=== PATIENT | male | born 1990 | race Caucasian/White ===

== ENCOUNTER 2022-12-08 09:47 | Outpatient (RCR) | payer OTHER, SELFPAY ==
--- NOTE | 2022-12-08 10:10 | BH.SGPN.GN ---
Behaviors/Verbalizations/Mental Status: []Pt alert and oriented, casually dressed and groomed. Eye contact good. Motor activity appropriate. Speech within normal limits. Affect congruent, mood anxious and depressed. Thoughts linear, logical, no signs of hallucinations or delusions. Client Response/Progress/Benefit: []Pt first day of IOP tx and did well to be a semi-active participant AEB taking notes and contributing in group discussions and activities. Pt engaged during interactive discussion in which the group defined self-care and discussed its benefits. Group identified improved motivation, decreased depression, reduced stress, and better relationships.?Pt worked with peers in a small group to identify myths related to self-care and worked within group to bust these self-care myths. Pt identified personal barrier of negative self-talk which keeps pt from practicing consistent self-care. Benefited from increased awareness of self-care, its benefits, and the consequences of not utilizing self-care strategies. Will continue IOP tx to prevent decompensation, improve ability to identify and actively apply healthy coping skills, and reduce anxiety. Narrative Note: []
--- NOTE | 2022-12-08 13:42 | BH.COMM ---
Communication Note - Communication with Client Communication Note: Met with pt today to complete initial paperwork. No significant changes since pre-admission screening. Completed [place] [facility]icide Screening. Denies active SI. Does report passive thoughts of carbon-monoxide poisoning. Denies active plan or intent. Pt does have a hx of one interrupted attempt via train tracks and one prior attempt via firearm. Reports he would no longer consider those methods. Does reports owning a firearm though shared he has this in a gun safe with the ammunition stored seperately. Educated on Lethal means counseling and harms reduction. Encouraged to give his firearm to a support. Reports his son as a major protective factor. Future oriented and willing to seek crisis services if feeling unable to maintain safety at any time. Consulted with Dr. Cloud with plan to admit to IOP with dx of F33.2
--- NOTE | 2022-12-09 09:05 | BH.SGPN.GN ---
Behaviors/Verbalizations/Mental Status: []Eye contact fair to good. Motor activity appropriate. Speech within normal limits. Affect congruent, mood anxious and depressed. Thoughts linear, logical, no signs of hallucinations or delusions. Reviewed client?s symptom tracker, no reported suicidal ideation, denies plan, or intent as of 12/09/2022. Client Response/Progress/Benefit: [] Client receptive of session, attentive and willing to process with group. Identified current mental health wins as beginning the IOP program, as well as meeting with the psychiatrist this morning. Shared he was prescribed a medication to help with managing his nightmares and hopefully improve overall quality of sleep. Shared feeling hopeful about this. Current stressor indicated as taking leave from work to do the IOP program and feeling unsure of the security of his job as a result. Reports knowing that addressing his mental health needs is the primary concern as he would ultimately end up losing his position if he did not. Client appeared to benefit from group support and encouragement. Recommended continued IOP tx to continue to improve distress tolerance and thought challenging, as well as promote mood stability. Narrative Note: []
--- NOTE | 2022-12-09 10:15 | BH.SGPN.GN ---
Behaviors/Verbalizations/Mental Status: [] Client alert and oriented, casually dressed and groomed. Eye contact good. Motor activity appropriate. Speech within normal limits. Affect congruent, mood dysthymic. Thoughts linear, logical, no signs of hallucinations or delusions. Client Response/Progress/Benefit: [] Client responded session by being attentive and taking notes. Client did not share input or reflect with group. Group identified the benefits of change which included: personal growth, positive perspective, increased confidence and increased autonomy. Worked with the group to identify barriers to change, which included: uncomfortable emotions such as anxiety, lack of awareness, low motivation, negative support system, and negative thinking. Client attentive in activity where they identified and discussed the emotions related to change. Appear to benefit from increased awareness and understanding of emotions, benefits, and barriers related to change. Will continue IOP tx to improve daily functioning, improve emotion regulation, and prevent decompensation.
--- NOTE | 2022-12-09 10:25 | BH.NA_ITS ---
Physical Data Vital Signs Pulse Rate: 87 Blood Pressure: 169/100 (Client states my blood pressure is always high when I get it taken in an office) Height/Weight Height: 1.88 m Weight:: 108.862 kg Weight in Pounds: 240.0 lbs Current Medication Compliance Medication Compliance Do you take your medication as prescribed?: Yes Nutritional History Appetite Nutritional Instructions: Describe your appetite:: Fair Additional nutritional information:: Client states after a recent break-up, he lost about 20 lbs but has gained about 10-15lbs of that back. 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 Functional Assessment Sleep Pattern Describe any problems with sleeping: Client states he sleeps about 5-7 hours per night. Activities Motor Activity:: Functional Sensory/Communication Assess Vision Problems Do you have any vision problems?: Glasses Medical Problems/History Cardiac Conditions Cardiovascular: Other (See comments) (client has a history of right sided heart failure related to his PE's and possibly had a minor NSTEMI at that time) Respiratory Conditions Respiratory: Asthma Neurological Conditions Neurological: Other (See comments) (history of concussions with sports when he was younger) Hematologic Conditions Hematologic: Hx of blood clot and Other (See comments) (history of DVT and PE's- currently on Eliquis which is planned life-long since he has had PE's more than once, protein C deficiency) Pain Assessment Do you have acute or chronic pain?: No Surgical History Surgical History Have you had any surgeries? If so, list type and date:: Yes (wisdom teeth, thrombolysis) Substance Abuse Substance Abuse Please describe substance abuse in the last 30 days:: Client reports to alcohol use monthly or less. Client denies tobacco or substance use. Client drinks 2 cans of pepsi per day for caffeine. Mental Status Summary Mental Status Significant Findings/Observations on Appearance and Mood:: Client is alert and oriented x4. Client is casually groomed with good hygiene. Client is cooperative with assessment. Client makes good eye contact. Client's voice has normal rate and volume. Client has appropriate affect. Client makes logical associations. Client has normal processing. Client denies delusions/hallucinations. Client reports some fleeting SI, denies intent/plan at this time. Suicide Assessment Suicidal Ideation Are you currently or have you been suicidal in the past?: Yes Suicidal Intentional Rating Scale (SIRS): Suicidal thoughts (past) (fleeting SI at times, denies current plan/intent) Physician Notification Past Psychiatric History MH Treatment Hx Past Psychiatric Medications:: Zoloft Age of first mental health symptoms: Client states he has had symptoms of depression since around age 9 and was first on medication for mental health in high school. Current providers for mental health treatment (counselor, psychiatrist, case work aide, etc.): Client recently started seeing Dr. Rouse (psychologist) and has an appointment 12/14 with Poly Price NP at [facility]. Fall Risk Assessment Age Age: Less than 60 Mental Status Mental Status: Willing & able to ask for assistance when needed Physical Status Physical Status: No problems Impairments Impairments: None Elimination Elimination: Continent AND independent Gait or Balance Gait or Balance: Walks independently Hx of Falls History of falls in the past 6 months: No known history Medications/Substances Psychotropics:: Antidepressants Medications/substances used within the past 24 hours or ordered to administer: 1-2 of the medications/substances listed above Total Score Total Points:: 1 RN Summary of Impressions Impressions Recommendations Impressions: Psychiatric Issues: 1. Major depressive disorder, recurrent, severe without psychosis 2. Generalized anxiety disorder 3. PTSD Impression: Medical Issues: Client states at times the savings card for his Eliquis doesn't provide a discount and he has to wait to fill this medication until a pharmacist can assist him in sorting it out. Client states he does not want to be on Warfarin vs the Eliquis due to frequent INR's needed. Discussed with client the importance of compliance with his anticoagulation medication due to his PE's. Level of Care How do the client's current symptoms and functional deficits support need for this level of care?: Client was referred to IOP by PCP after SI with thoughts of methods. Client states he called his PCP when his fleeting SI started to have some ideas of methods on how he would commit suicide and he realized he needed more help. Client reports worsening mental health after a recent break-up where he felt the relationship was going well and his girlfriend decided she wanted to be with her ex-boyfriend. Client reports some panic attacks, decreased appetite (as well as ongoing avoidant restrictive food intake disorder). IOP will promote gains and prevent further decompensation while providing social support and skills training.
[2022-12-09 10:53] VITALS: BP 169/100; PULSE 87
--- NOTE | 2022-12-09 11:15 | BH.SGPN.GN ---
Behaviors/Verbalizations/Mental Status: []Pt alert and oriented, neatly dressed and groomed. Eye contact good. Motor activity appropriate. Speech within normal limits. Affect congruent, mood euthymic. Thoughts linear, logical, no signs of hallucinations or delusions Client Response/Progress/Benefit: [] Pt responded well to session, attentive AEB participating in activity and actively engaging in group discussion. Group processed activity to relate the strategies used to overcome barriers in the activity to managing change in own life. Discussed and set SMART goal in group as it relates to change group members are wanting to make. Pt identified change they want as continuing to engage in therapy. Identified being in the preparation stage as oanic response and negative self-talk is keeping pt from following through. Pt stated to get to the action stage consistently, pt will need to use opposite action and being vulnerable. Appeared to benefit from identifying a small goal to work towards. Pt will continue IOP tx to prevent decompensation, reduce suicidal ideations, and improve daily functioning. ??? Narrative Note: []
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
--- NOTE | 2022-12-09 12:58 | BH.DR.ITP ---
Initial Treatment Plan Patient Information Visit Information: ADMISSION DATE: EXPECTED LOS: 4-6 weeks Problems/Symptoms Problem #1:: Depression Symptom:: Sadness, hopelessness, worthlessness, guilt, low energy, anhedonia, biological disruption of appetite, passive thoughts of , fleeting, passive suicidal ideation Problem #2:: Anxiety Symptom:: Worry, rumination, nightmares, flashbacks, avoidance
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
--- NOTE | 2022-12-11 10:10 | BH.SGPN.GN ---
Behaviors/Verbalizations/Mental Status: []Eye contact is good. Alert and oriented. Motor activity is appropriate. Appearance is casual. grooming is appropriate. Speech is Appropriate. Mood is dysthymic. Affect is congruent. Thoughts are linear and logical. No evidence of psychosis or hallucinations. Client Response/Progress/Benefit: []Client passive participate AEB providing limited contributions, however did appear to listen attentively to others and taking notes throughout. The group identified the impact of emotions on communication such as change in tone, body language, shutting down, misperceiving the communication, and reassurance seeking. Client shared struggling with reassurance seeking when experiencing increased anxiety and self-doubt. During group activity, client did well to challenge himself to participate and reflected on feeling anxious but comfortable when trying to communicate instructions to fellow participants in order to accomplish the group goal. Client benefited from session by gaining an increased understanding on the importance of managing emotions to improve daily functioning. Client will continue IOP to further improve mood stability, improve use of skills for better symptom management, and prevent decompensation. Narrative Note: []
--- NOTE | 2022-12-11 11:10 | BH.SGPN.GN ---
Behaviors/Verbalizations/Mental Status: []Pt alert and oriented, neatly dressed and groomed. Eye contact good. Motor activity appropriate. Speech within normal limits. Affect congruent, mood anxious. Thoughts linear, logical, no signs of hallucinations or delusions. Client Response/Progress/Benefit: [] Pt engaged in session AEB Pt listening attentively to peers and providing input. Attentive during psychoeducation on 4 zones of regulation. Pt able to identify feelings and behaviors for each zone. Pt identified coping skills one can use to support self in each zone. Pt reports belief they are in the ?yellow/red? zones today and pt wants to focus on being mindful and consciously trying to break negative thinking patterns to help pt in this zone. Benefited from increased education on zones of regulation or stages of alertness for emotions and healthy coping skills to use for each zone. Will continue IOP tx to prevent decompensation, improve daily functioning, and gain healthy coping skills. Narrative Note: []
--- NOTE | 2022-12-18 14:42 | BH.MDN_ITS ---
Multi-Disciplinary Note Note 45-min Individual: Time Started:: 09:03 Date: 12/18/22 Purpose of session/treatment goals addressed:: To identify and address current symptoms and stressors reinforcing pt anxiety. Eye Contact:: Good Motor Activity:: Restless Appearance:: Neat and Casual Speech:: Appropriate Mood:: Euthymic and Anxious Affect:: Congruent Thoughts:: Linear, Logical and No evidence of hallucinations/delusions noted Staff Interventions:: psychoeducation on: (ERP therapy, anxiety warning signs), CBT techniques, rapport building, strengths perspective, goal setting and other (reviewed mistaken beliefs homework) Client Response:: Pt responded well to session, open to meeting with therapist. Pt reports he is still somewhat anxious in group, which is to be expected, but pt has been consistent with attendance. Pt shared reaching out to a friend over the weekend to play basketball. Reports this was a personal accomplishment as he challenged himself to share about his mental health struggles and seeking IOP tx. Reports this was a positive experience as his friend was encouraging. Discussed his 2nd session with his outpatient counselor was Wednesday and that this had been helpful in challenging his perspective and being able to open up more about his trauma history. Discussed currently his largest stressor is work as he continues to fear repercussions for taking time off for IOP tx. Did well to challenge this ad remind himself that he is working with HR and has been approved to take the time. Pt reports trying to ?look at things more objectively since beginning IOP tx and feels this has helped with reducing distorted thoughts to a degree. Indicated continuing to struggle with significant anxiety and often feels there is not a specific cause associated. Upon reviewing pt Mistaken Beliefs homework, he identified the belief of ?I have to be perfect? or ?It?s not okay to make mistakes.? Often reinforces his anxiety and makes it difficult for pt to find grounding or mindfulness skills effective. Shared a limited tolerance for doing things that do not feel productive or struggles with the need to ?fix? something he is doing if it is not up to his expectations, often reducing his overall level of enjoyment. Reported difficulties with allowing himself to no be engaged in a task and finds something to focus on even when sitting outside to relax. Pt able to identify her personal warning signs (physical, cognitive, and behavioral) for anxiety. Identified a desire to become more comfortable with down time and allowing himself to relax without feeling the need to accomplish or do something productive. Additionally, reports wanting to improve comfort with perceived failure or mistakes. Identified goal for the week as intentionally messing up artwork after working on it for a while and sitting outside without allowing himself to distract himself for up to five minutes to practice sitting with the uncomfortable. Risks/Concerns:: Pt denies any suicidal ideations, plan, or intent as of 12/18/22. Progress Toward Goals/Plan:: Pt reports mild improvement in symptoms since last week, and is demonstrating progress by his consistent attendance and self- report of applying thought challenge skills. Pt receptive to identifying two small goals to increase exposure and reduce anxiety associated with fear of failure/not engaging in intentionally productive activities/tasks over time. Pt continues to endorse severe anxiety with fear of failure and fear of judgement. Pt is still isolating, but coming to IOP three times a week has been helping with this and reports recently reaching out to a support for the first time in several weeks. Shared opening up about his mental health struggles as well which was progress as pt has struggled in doing so in the past. Pt will continue IOP tx to prevent decompensation, improve anxiety management and calming skills, and reduce avoidance. Time Stopped:: 09:48
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
== END 2022-12-11 23:59 ==
LOC: BHIOP 09:47
PROVIDERS: PCP Registered Nurse; Referring Provider Psychiatry & Neurology Psychiatry; Visit Provider Psychiatry & Neurology Psychiatry
DX: F33.2 Major depressive disorder, recurrent severe without psychotic features (principal); F41.1 Generalized anxiety disorder; F43.10 Post-traumatic stress disorder, unspecified; F50.82 Avoidant/restrictive food intake disorder
CPT/HCPCS: S9480; 90837; 90853

== ENCOUNTER 2022-12-14 07:19 | Outpatient (RCR) | payer OTHER, SELFPAY ==
[2022-12-12 01:48] VITALS: BP 169/100; PULSE 87
--- NOTE | 2022-12-16 09:03 | BH.SGPN.GN ---
Behaviors/Verbalizations/Mental Status: [] Eye contact good. Motor activity appropriate. Speech within normal limits. Affect congruent, mood anxious and depressed. Thoughts linear, logical, no signs of hallucinations or delusions. Reviewed client?s symptom tracker, no reported suicidal ideation, denies plan, or intent as of 12/16/2022. Client Response/Progress/Benefit: [] Client receptive of session, attentive and willing to process with group. Identified mental health ?wins? as working with his new outpatient psychologist to begin challenging several negative thought patterns. Indicated that he has had negative experiences with counseling in the past and is glad he followed through with this. Additional win noted as supporting a Hospice pt in fulfilling a last wish of going to spend time on a horse [place]. Reported this was an encouraging and beautiful moment to watch. Current stressor noted as feeling anxious this morning. Did well to identify several skills he can use to aid in reducing overall anxiety and described saying positive affirmations to himself this morning. Client appeared to benefit from group support and encouragement. Recommended continued IOP tx to continue to work on anxiety reduction, improve mood stability, as well as prevent decompensation. Narrative Note: []
--- NOTE | 2022-12-16 10:05 | BH.SGPN.GN ---
Behaviors/Verbalizations/Mental Status: [] Client alert and oriented, casually dressed and groomed. Eye contact good. Motor activity appropriate. Speech within normal limits. Affect congruent, mood euthymic. Thoughts linear, logical, no signs of hallucinations or delusions. Client Response/Progress/Benefit: [ ]Client was an active participant in activity and taking notes during group discussion and provided input in during group discussions.. Attentive during psychoeducation on coping skills, why people use unhealthy coping skills, and how to replace unhealthy coping skills. Group came up with list of negative coping skills that included substance use, avoidance, lashing out, and escaping from reality. Group discussed the effects of how negative coping skills can impact mental health in a negative way which included lack of positive supports. Benefited from increased understanding of unhealthy coping skills and the need for developing healthy interna and external coping skills. Client will continue IOP tx to prevent decompensation and increase overall functioning. Narrative Note: []
--- NOTE | 2022-12-16 11:05 | BH.SGPN.GN ---
Behaviors/Verbalizations/Mental Status: [] Client alert and oriented, neatly dressed and groomed. Eye contact good. Motor activity appropriate. Speech within normal limits. Affect congruent, mood euthymic. Thoughts linear, logical, no signs of hallucinations or delusions. Client Response/Progress/Benefit: [] Client responded well to session AEB taking notes and providing input and examples throughout. Group discussed the different categories of coping skills which included distraction, emotional release, grounding, self-love, and thought challenging. Client created a coping skill menu identifying various skills to try in each category. Client?s coping skill menu included: getting outside, working out, deep breathing, playing basketball, and positive self talk. Appeared to benefit from increasing repertoire of healthy coping skills. Client will continue IOP tx to improve daily functioning, reduce negative thinking, and increase emotional regulation skills. Narrative Note: []
--- NOTE | 2022-12-17 09:00 | BH.SGPN.GN ---
Behaviors/Verbalizations/Mental Status: []Pt alert and oriented, neatly dressed and groomed. Eye contact good. Motor activity restless. Speech within normal limits. Affect constricted, mood anxious and agitated. Thoughts linear, logical, no signs of hallucinations or delusions. Reviewed pt?s symptom tracker, no risk for suicidal ideation, plan, or intent as 12/17/22 Client Response/Progress/Benefit: []Pt responded well to session, offering supportive statements and engaged. Pt reports feeling restless this morning and pt stated he plans to go to the gym today to get some of his nervous energy out. Pt's mental health wins today including reaching out to a friend and telling them about pt's current struggles as well as performing well at work. Pt shared telling his friend about his mental health is out of the ordinary for pt as pt has a lot of negative self-talk and does not want to feel like a burden. Pt shared he is trying to be more vulnerable. Pt appeared to benefit from reflecting on mental health wins. Pt will continue IOP tx to promote mood stability, reduce negative thinking patterns, and increase self-care. Narrative Note: []
--- NOTE | 2022-12-17 10:15 | BH.SGPN.GN ---
Behaviors/Verbalizations/Mental Status: []Client alert and oriented, casual dress, hygiene tended to. Eye contact good. Motor activity restless. Speech within normal limits. Affect congruent, mood euthymic. Thoughts linear, logical, no signs of hallucinations or delusions. Client Response/Progress/Benefit: []Client responded well to session, attentive to discussions, taking notes. Did not provide input throughout group discussions. Client worked cooperatively with the group to identify factors that contributed to how we define ourselves which included: upbringing, societal expectations, labels, failures, trauma, shame/guilt, others opinions, and diagnosis. Attentive during group discussion about social and perceived stigma. Client seemed to benefit from increased awareness of how mental health stigma can impact progress and self-worth. Client to continue IOP tx to improve daily functioning, decrease anxiety, and prevent decompensation.
--- NOTE | 2022-12-17 11:16 | BH.SGPN.GN ---
Behaviors/Verbalizations/Mental Status: []Client alert and oriented, casually dressed and groomed. Eye contact good. Motor activity appropriate. Speech within normal limits. Affect congruent, mood anxious and euthymic. Thoughts linear, logical, no signs of hallucinations or delusions. Client Response/Progress/Benefit:?[]Client engaged participant AEB client participating in the activity, providing input during small group discussion, and listening attentively to others. Client appeared to connect with discussion in the benefits of addressing mental health stigma which included: improved relationships, validation, increased happiness, and improved confidence. Group brainstormed strategies to combat social and perceived stigma. ?Client shared one thing he can personally do to combat stigma is to talk about his mental health more openly and honestly with his supports as well as mental health providers. Appeared to benefit from increasing awareness of strategies to combat stigma. Will continue IOP tx to continue to reduce anxiety, improve emotion regulation and prevent decompensation. Narrative Note: []
--- NOTE | 2022-12-18 10:10 | BH.SGPN.GN ---
Behaviors/Verbalizations/Mental Status: []Client alert and oriented, casually dressed and groomed. Eye contact good. Motor activity appropriate. Speech within normal limits. Affect congruent, mood euthymic. Thoughts linear, logical, no signs of hallucinations or delusions. Client Response/Progress/Benefit: []Client receptive to session AEB providing input throughout, listening attentively to others, and taking notes. Attentive throughout psychoeducation on the cognitive triangle and maintenance cycles. Worked on identifying own vicious cycle. Engaged in group discussion reviewing the impact of daily activities and behaviors in either reinforcing unhealthy maintenance cycles and depression or assisting in reducing symptoms (?down? vs ?up? activities). Client identified common ?down? activities they engage in as: staying in same clothes, isolation, oversleeping, avoiding chores, and avoiding laundry. Common ?Up? activities client identified included: going outside, exercise, playing with dogs, running, and woodworking. Appeared to benefit from increased awareness of current behaviors and impact these have on mental health. Pt to continue IOP to increase healthy coping skills, challenge distortions, and prevent decompensation.
--- NOTE | 2022-12-18 11:15 | BH.SGPN.GN ---
Behaviors/Verbalizations/Mental Status: []Pt alert and oriented, neatly dressed and groomed. Eye contact good. Motor activity appropriate. Speech within normal limits. Affect congruent, mood euthymic. Thoughts linear, logical, no signs of hallucinations or delusions. Client Response/Progress/Benefit: []Pt responded well to session, attentive and engaged in activity. Group shared having patience and being willing to re-evaluate helped the group be success. Group discussed values and the benefits that knowing one's values can have on one's mental health. These included: increasing motivation, resolved cognitive dissonance, and less stress. Pt explored own values and identified physical wellbeing and hobbies as their top two values. Pt set a goal to run 1.5 miles at least four times a week and to make time to hike with his dog to live according to values. Pt appeared to benefit from exploring values and creating a weekly goal. Pt will continue IOP tx to prevent decompensation, improve daily functioning, and increase self-compassion. Narrative Note: []
--- NOTE | 2022-12-23 09:00 | BH.SGPN.GN ---
Behaviors/Verbalizations/Mental Status: []Pt alert and oriented, casually dressed and groomed. Eye contact good. Motor activity appropriate, at times restless. Speech within normal limits. Affect congruent, mood anxious and euthymic. Thoughts linear, logical, no signs of hallucinations or delusions. Reviewed pt?s symptom tracker, risk for suicidal ideation reported as 1/ which is within pt baseline, denies plan, or intent as 12/23/22 Client Response/Progress/Benefit: []Pt responded well to session, open to contributing with group and engaged. Pt reports feeling energetic this morning and pt stated he was able to go to the park and play basketball this morning which aided in releasing extra anxious energy. Pt identified this as a mental health win. Additional win noted as continuing to use healthy skills such as opposite action and shared cleaning a room in the house he has been putting off. Stressor noted as recently discovering his son?s mother would not be able to bring his son home from [place], meaning that pt will need to get a plane ticket last minute to pick him up. Shared trying to focus on accepting this and planning rather than frustration about it. Pt appeared to benefit from reflecting on mental health wins. Pt will continue IOP tx to promote mood stability, reduce negative thinking patterns, and increase use of calming skills. Narrative Note: []
--- NOTE | 2022-12-23 10:25 | BH.MDN ---
Multi-Disciplinary Note Note 45-min Individual: Time Started:: 10:27 Date: 12/23/22 Purpose of session/treatment goals addressed:: Purpose of session was to address tx plan goal #2. Additional purpose was to review pt ERP homework and create a new exposure goal. Eye Contact:: Good (at times avoidant or indirect) Motor Activity:: Restless Appearance:: Neat and Casual Speech:: Appropriate Mood:: Anxious and Dysthymic Affect:: Congruent Thoughts:: Linear, Logical and No evidence of hallucinations/delusions noted Staff Interventions:: thought challenging, motivational interviewing, strengths perspective and goal setting (reviewed ERP homework and established a new exposure goal) Client Response:: Pt responded well to session, openly discussed current stressors and thoughts/feelings. Shared struggling with increased depressive sx over the past few days, however, reports no trigger. Noted he has not been able to run recently due to a hamstring issue and has had in increased appetite in the past few days since starting on Lexapro. Reports often snaking on junk food and provided insight that his reduced exercise and diet may be contributing to increased depressive sx. Described trying to practice acknowledging and accepting his emotions rather than distracting himself to avoid feeling discomfort. Went on to discuss challenging himself to ?sit with the uncomfortable? and complete his exposure goal for homework everyday since last session. Reflected on initially having a very difficult time with allowing himself to sit still and not complete a task or focus on any one thought. Reported ?I had to try 3 times on the first day and failed every time?. Pt identified feelings of discomfort and increased anxiety after completing the task the first few days. Insight that this may be related to challenging his brain to accept ?not being ?on? all the time?. Pt reflected that he has been conditioned from a young age to be hypervigilant and has always had jobs requiring him to be on high alert and ready to respond to a potential crisis at any moment. Able to make connections with how this has maintained pt?s anxiety and impeded the effectiveness of grounding skills as pt is unable to allow his body or mind to relax. 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 Additionally, shared struggling to go into a situation unprepared and cited the example of planning days in advance what he will share in the process group sessions. Pt noted he does not want to appear unprepared or be an inconvenience to others by causing them to wait. Identified eventually wanting to be able to complete the exposure goal of intentionally making the group wait for him to share but does not yet feel ready to complete this task. Identified instead to start with the goal of not planning what he will share until at most 15 minutes prior to the start of process group each day. Risks/Concerns:: Pt reports passive thoughts of but describes these as fleeting and is able to easily manage. Denies specific or active plan or intent. Future oriented and protective factors identified. Progress Toward Goals/Plan:: Progress noted. Pt discussed successful completion of first exposure goal to address fear of failure and improve tolerance levels when feeling anxious or experiencing ?down time?. Discussed challenging himself to do so despite feeling uncomfortable and ?failing? at the task several times. Reports improved energy and motivation. Pt is actively working to challenge his thoughts and implement more positive self-talk and affirmational statements in his daily life. Continues to report high levels of anxiety and recent increased depressive sx. Discussed struggling with giving himself credit and feeling like a burden. Will continue IOP tx to improve self-compassion and confidence, reduce use of safety behaviors, and promote mood stability. Time Stopped:: 11:07
--- NOTE | 2022-12-23 11:10 | BH.SGPN.GN ---
Behaviors/Verbalizations/Mental Status: [] Eye contact is good. Motor activity is appropriate. Appearance is casual. Speech is Appropriate. Mood is anxious. Affect is congruent. Thoughts are linear and logical. No evidence of psychosis. Client Response/Progress/Benefit: [] Pt was an active participant in group discussions and experiential activity. Attentive during psychoeducation. Patient participated during interactive discussion on strategies to overcome several obstacles to mental wellness including People-pleasing, Low Self-esteem, unhealthy coping skills, isolation, loneliness, and negative thinking. Pt choose the barrier of people-pleasing to work on this week and identified strategies to incorporate including work on my self-worth and create and maintain stricter boundaries. Benefited from increased awareness of obstacles to mental wellness and strategies to help overcome those obstacles. Will continue in IOP to maintain safety, stabilize mood, and increase healthy coping skills. Narrative Note: []
--- NOTE | 2022-12-23 11:40 | PCM.BH.PN_ITS ---
Progress Note Progress Note: History of Present Illness/Interim History: The patient is a 32-year-old male with a history of anxiety, depression and PTSD who is seen in follow-up at the [facility] [place] behavioral health IOP program. I last saw the patient 2 weeks ago and at that time no medication changes were made as his Lexapro had recently been in been increased. The patient according to the staff has consistent attendance and is engaged in the program and is learning valuable skills that he is trying to apply to his issues. He remains anxious and somewhat restless at times. He states that he has a little less depression than before and admits to have occasional fleeting, passive suicidal ideation every other day now but no definite plan for suicide. He is no longer feeling hopelessness or worthlessness. He still feels guilty and still admits to passive thoughts of a few times a week. He denies anhedonia now and feels he is enjoying playing sports now. He still having several panic attacks a week. He feels he is benefiting from his therapy and is trying to learn to manage his anxiety and especially manage his panic attacks by relaxation exercises and learn to abort them. His outpatient provider gave him clonidine to take as needed for panic attacks but he only took it a few times because he is trying to do it using his relaxation techniques but it does work when he takes it. He denies plan for suicide, active suicidal ideation, homicidal ideation, hallucinations or delusions. Current Psychiatric Medications: [] Lexapro 20 mg p.o. daily (on this for 4 weeks); clonidine 0.1 mg p.o. as needed for panic attack; prazosin 1 mg p.o. nightly Mental Status Examination: [] The patient is a 32-year-old male who is casually dressed and groomed with good hygiene and appears normal for stated age. He is ambulatory with a normal gait and has mild psychomotor agitation in the form of bouncing his legs at times during the interview. Eye contact is good and speech is normal rate and rhythm and fluent with no pressure. Mood is stated as depressed and anxious. Affect is full and normal. Thought process is goal-directed and organized. Thought content: There is evidence of passive thoughts of and occasional fleeting, passive suicidal ideation. There is no evidence of active suicidal ideation, plan for suicide, homicidal ideation, hallucinations or delusions. Reality testing is intact. Judgment is intact. Insight is fair and improving. Impulsivity is moderate. Diagnoses: [] 1. Major depressive disorder, recurrent, severe without psychosis 2. Generalized anxiety disorder 3. PTSD 4. Work, primary support issues 5. Cluster B traits 6. Avoidant restrictive food intake disorder Plan: [] The patient will continue the IOP program at [facility] [place] as the structure, support, education and group therapy will hopefully prevent worsening of the patient's symptoms which could require hospitalization. He felt safe during the interview and if it anytime he does not feel safe he will let us know or go to the emergency room. The risks, options, possible complications and side effects of the medications were again discussed with the patient and he understands and accepts these. The patient agrees to increase his Lexapro to 30 mg p.o. daily and prescription was sent in for this. No other medication changes were made. He will continue to follow-up with his outpatient providers and I will see the patient in follow-up in 2 weeks.
--- NOTE | 2022-12-24 09:05 | BH.SGPN.GN ---
Behaviors/Verbalizations/Mental Status: [] Eye contact is good. Motor activity is restless. Appearance is casual. Speech is Appropriate. Mood is anxious. Affect is congruent. Thoughts are linear and logical. No evidence of psychosis. Reviewed daily check in sheet and pt reports 1/5 for suicidal thoughts and 0/5 for intent. This is baseline for patient. Client Response/Progress/Benefit: [] Pt participated when prompted. Attentive. Emotion for today is energetic. Daily symptom tracker notes 3/5 for depression/anxiety. Pt shared a positive story that occurred during work yesterday which was a benefit to his self-esteem and overall mental health. Insight that in the past he often discounts his positives and doesn't take compliments thinking that he doesn't deserve them. He states that he tried really hard yesterday to accept the compliments her received at work and believe them to be true. He is beginning to challenge cognitive distortions, reframe thinking, and change his perspective on social interactions. Progress noted per pt report. Benefited from group support, encouragment, and feedback. Will continue in IOP to maintain safety, stabilize mood, and improve healthy coping. Narrative Note: []
--- NOTE | 2022-12-24 10:10 | BH.SGPN.GN ---
Behaviors/Verbalizations/Mental Status: []Pt alert and oriented, neatly dressed and groomed. Eye contact good. Motor activity restless. Speech within normal limits. Affect congruent, mood content. Thoughts linear, logical, no signs of hallucinations or delusions. Client Response/Progress/Benefit: []Pt was an active participant in group discussions and activity. Attentive during psychoeducation. Pt along with peers were able to identify several negatives on the picture given to the group. Pt and peers also identified positives in the picture and made the connection that finding positives is much more difficult. Interactive discussion on the definition of perspective, how perspective is formed, and why perspective is important in treatment. Pt along with peers also identified that perspective can either motivate and encourage treatment or be a barrier to receiving help. Pt shared today his perspective is more positive and hopeful. Pt stated reminding himself that I owe it to myself to get better has helped pt develop a more positive perspective. Pt reflected that being more hopeful helps pt be more vulnerable and get support. Will continue in IOP to stabilize moods, reduce negative thinking patterns, and improve daily functioning. Narrative Note: []
--- NOTE | 2022-12-24 11:10 | BH.SGPN.GN ---
Behaviors/Verbalizations/Mental Status: []Pt alert and oriented, neatly dressed and groomed. Eye contact good. Motor activity appropriate. Speech within normal limits. Affect congruent, mood euthymic. Thoughts linear, logical, no signs of hallucinations or delusions. Client Response/Progress/Benefit: []Pt was attentive and contributed to small group discussion. Pt completed strengths exploration worksheet, identifying being a leader, bravery, and logic as personal strengths. Pt able to acknowledge how these strengths are helping pt and can continue to help pt in mental health journey. Pt worked with group to identify strategies that can help increase utilization of personal strengths and how to challenge one?s perspective in general. Pt identified wanting to work on looking at the evidence to help challenge perspective. Benefited from identifying personal strengths and strategies for enhancing use of identified strengths. Pt to continue IOP tx to promote mood stability, improve daily functioning, and increase self-compassion. ? Narrative Note: []
--- NOTE | 2022-12-25 09:00 | BH.SGPN.GN ---
Behaviors/Verbalizations/Mental Status: [] Pt alert and oriented, neatly dressed and groomed. Eye contact good. Motor activity restless. Speech within normal limits. Affect congruent, mood stressed. Thoughts linear, logical, no signs of hallucinations or delusions. Reviewed pt?s symptom tracker, no risk for suicidal ideation, plan, or intent 12/25/22 Client Response/Progress/Benefit: []Pt responded well to session, attentive and engaged. Pt reports feeling frazzled this morning as pt had a highly stressful day yesterday. Pt shared his dog had a seizure, work was stressful, and the IOP topic was challenging for him. Pt stated he was proud of himself for using healthy coping skills which helped pt manage a panic attack. Pt also shared he made it today despite wanting to cancel. Pt shared he came because group makes me feel better. Pt appeared to benefit from coming to IOP tx instead of isolating. Pt will continue IOP tx to prevent decompensation, increase use of healthy coping skills, and increase self-care practices. Narrative Note: []
--- NOTE | 2022-12-25 10:10 | BH.SGPN.GN ---
Behaviors/Verbalizations/Mental Status: []Pt alert and oriented, casually dressed and groomed. Eye contact good. Motor activity appropriate. Speech within normal limits. Affect congruent, mood calm and euthymic. Thoughts linear, logical, no signs of hallucinations or delusions. Client Response/Progress/Benefit: []Pt receptive of session, actively engaged throughout AEB taking notes and listening to discussion. Appeared to connect with group topic of cognitive distortions and the impact of thought patterns on mental health, coping behaviors, and relationships. Pt reports connecting with distortions of labeling and disqualifying the positives. Pt stated he has difficult time accepting compliments and recognizes continuing to discount the positive will reinforce low self-esteem. Pt appeared to benefit from gaining insight on distorted thinking patterns and how this impacts overall mental health. Will continue IOP tx to improve self-esteem, increase healthy coping, and prevent decompensation.
--- NOTE | 2022-12-25 11:10 | BH.SGPN.GN ---
Behaviors/Verbalizations/Mental Status: [] Eye contact is good. Motor activity is restless (toe tapping). Appearance is casual. Speech is Appropriate. Mood is anxious. Affect is congruent. Thoughts are linear and logical. No evidence of psychosis. Client Response/Progress/Benefit: [] Pt was an active participant during group discussions and activity. Pt was placed in a smaller group and participated in quiz-show format in which small groups competed against each-other to answer questions based on identifying, challenging, and reframing cognitive distortions. Pt was engaged in her smaller group, participated in group interactions to brainstorm answers, and appeared to be comprehending cognitive distortions. Stated It would be most helpful to be mindful of which distortion I'm using I really struggles with All or Nothing thinking and Discounting the Positives. Benefited from gaining further insight and awareness of cognitive distortions as well as practicing ways to reframe and challenge thoughts. Will continue in IOP to maintain safety, stabilize mood, and increase healthy coping skills. Narrative Note: []
--- NOTE | 2022-12-30 09:00 | BH.SGPN.GN ---
Behaviors/Verbalizations/Mental Status: [] Eye contact is good. Motor activity is restless. Appearance is casual. Speech is Appropriate. Mood is euthymic. Affect is anxious. Thoughts are linear and logical. No evidence of psychosis. Reviewed daily check in sheet and reports a 1/5, with 5 being severe, for suicidal ideation, and a 0/5 for suicidal intention. This is below pt's baseline. Does not present as imminent risk for harm to self or others. Client Response/Progress/Benefit: [] Pt participated when prompted. Attentive. Daily symptom tracker notes 3/5 for depression and 3/5 for anxiety. Client reported mental health positive as went hiking yesterday for a couple of hours and was able to enjoy himself. 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 Reported mental health stressor as having several trauma nightmares last night and not being able to sleep. Reported woke up really early this morning and decided to go to the park to shoot a basketball to help distract him. Seemed to benefit from support from peers. Will continue in IOP to continue use of healthy coping skills, increase confidence, and prevent decompensation.
--- NOTE | 2022-12-30 11:15 | BH.SGPN.GN ---
Behaviors/Verbalizations/Mental Status: [] Client alert and oriented, casually dressed and groomed. Eye contact good. Motor activity appropriate. Speech within normal limits. Affect congruent, mood anxious and euthymic. Thoughts linear, logical, no signs of hallucinations or delusions. Client Response/Progress/Benefit: []Client was an active participant throughout AEB contributing to group discussion and taking notes. Client provided input during small group discussion on strategies to combat each factor maintaining adverse nutritional cycles. Worked with group to identify ways to foster more mindful nutritional choices. Each group participant identified one small step they could take today to begin establishing mental wellness promoting nutritional choices. Client shared plans to?further educate himself on the mental health effects of his nutritional choices to decide what healthier alternatives he can choose are as well as begin to address his disordered eating behaviors.?Appeared to benefit from gaining insight into mental wellness centered nutrition and identifying personal steps client can take to support own nutritional psychology. Recommended continued IOP tx to further increase healthy anxiety management, promote mood stability, and improve overall functioning.? Narrative Note: []
--- NOTE | 2022-12-30 15:20 | BH.MTP_ITS ---
Treatment Plan Review Demographics Date of Admission:: 12/08/22 Date of Treatment Plan Review:: 12/30/22 Admitting Diagnoses:: 1. Major depressive disorder, recurrent, severe without psychosis 2. Generalized anxiety disorde 3. PTSD 4. Avoidant Restrictive Food Intake Disorder Current Diagnoses:: 1. Major depressive disorder, recurrent, severe without psychosis 2. Generalized anxiety disorde 3. PTSD 4. Avoidant Restrictive Food Intake Disorder Patient Status Patient's Response to Treatment:: Pt consistently attends IOP sessions. He reports difficulties with sharing about his mental health symptoms as therapy is newer to pt and he shared he has never really allowed himself to open up in the past. Pt reports feeling he originally minimized his mental health symptoms due to guilt and not wanting to be a burden; however, has improved in his ability to more openly discuss and begin working on addressing mental health stigma and fears of inconveniencing others with his mental health needs. Pt has become a more active participant as he has grown more comfortable in the group setting and has begun challenging himself to open up more regarding his mental health with fellow participants. Status of Current Problems and Symptoms: Ongoing problems. Client continues to report difficulty with anxiety and feeling an ongoing sense of urgency impeding pt?s ability to effectively apply grounding/calming skills. Client continues to report passive thoughts of , denies active intention or plan. Client reports occupational issues, but doesn't believe this is to a point in which he would like to change his current work environment. Client reports slight improvement with depressed and anxious symptoms and feels he has significantly improved his insight into his warning signs, triggers, and common distortions. Client reports starting to enjoy basketball, painting, hiking, and is getting back into running again. Client states he does feel anxious when she wakes up which has negatively impacted his perspective at times at the start of the day. Progress Problem #1: Problem Name:: Depression Status of Goals:: obj 1 - partially met, ongoing work encouraged. Pt can identify healthy coping skills like reaching out to supports, exercising, marika ntifying positives, breathing, and opposite action. struggles with consistent application of skills. Pt additionally struggles with minimization and self- reports minimizing his sx out of fear of inconveniencing others, being a burden, or taking time away from someone who is worse off. This may continue to reinforce sx of worthlessness and guilt which could contribute to no change of score for depressive sx on DSM 5 at review. obj 2 - partially met, ongoing work encouraged. Pt is able to identify negative thoughts and core beliefs, as well as is starting to recognize impact these thoughts have on his mental health. Needs continued work on identifying and challenging thoughts. Pt reports guilt which leads to increased negative thinking. Team Recommendations:: Team recommends to continue current goals and objectives with continued focus on challenging negative core beliefs and building self-esteem. Problem #2: Problem Name:: Anxiety, panic Status of Goals:: obj 1 - partially met. Client can identify calming skills like belly breathing, grounding, and meditation. Does not report consistent use of skills and continues to avoid things that make him anxious. Pt struggles with restlessness and sense of urgency often limiting his patience in applying consistent grounding skills. Client is working to incorporate this into his ERP therapy to improve overall comfort with grounding activities. obj 2 ? partially met, ongoing work encouraged. Per DSM 5 at review pt's anxiety symptoms have increased by 10%. This is likely due to client actively working on exposure therapy via completing different fear goals on his fear ladder. Client has been improving in ability to his exposure goals. Team Recommendations:: Team recommends to continue current goals and objectives with continued focus on encouraging pt to communicate his mental nba sx and address feelings of being a burden/inconvenience.
--- NOTE | 2022-12-31 08:18 | BH.MDN_ITS ---
Multi-Disciplinary Note Note 60-min Individual: Time Started:: 10:29 Date: 12/31/22 Purpose of session/treatment goals addressed:: Purpose of session was to address tx plan goal #2. 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 Motor Activity:: Appropriate Appearance:: Casual Speech:: Appropriate Mood:: Anxious and Depressed Affect:: Congruent Thoughts:: Linear and Logical Staff Interventions:: thought challenging, CBT techniques, strengths perspective, goal setting and taught coping skills (reviewed grounding skills pt can use when complete fear ladder goals) Client Response:: Pt responded well to session, actively engaged throughout. Client discussed recently struggling with replaying past arguments or conflicts in his head. Reports specifically struggling with ruminating on a recent interaction at work in which he was denied his request for a raise. Noted that he had requested a meeting to discuss the possibility of getting a raise and was ?laughed at? by the social and human services assistant. Pt described this as irritating and led to him replaying the conversation throughout the day to determine if he could have done or said anything differently. Ultimately, pt reports he was able to recognize this was not his fault and is trying to focus on what is in his control in the situation. Went on to discuss successfully completing his fear ladder homework and challenged himself not to prep for what he would say in process group. Noted feeling somewhat anxious about this. Discussed that after several days of working on the goal it became easier and encouraged him to challenge himself to begin another exposure goal. Noted that he was able to be vulnerable in group and share with fellow participants about his eating disorder diagnosis. Reports feeling proud of himself for doing so and more encouraged to share about his mental health with others in his life. Pt expressed a desire to begin using exposure therapy to work on his food avoidance. Remainder of session spent discussing pt?s anxieties surrounding eating foods he does not consider ?safe?. Shared most of his ?safe foods? include past or other soft things as certain textures make him feel more anxious. Reports readiness and a desire to begin to address his food avoidance as it has been significantly impacting his ability to socialize with others, explaining that he does not go to social events that may involve food as he does not want to seem rude or be an inconvenience if they a serving a food he is anxious about eating. Pt receptive of creating a fear ladder for his ?unsafe? foods as homework. Additionally, shared plans to challenge himself to eat an apple (which was identified as a ?somewhat safe? food by pt) in group as this would address his fear of being an inconvenience as well as allow himself to practice getting more used to eating in social settings again. Risks/Concerns:: Pt reports passive thoughts of but describes these as fleeting in nature. Denies specific or active plan or intent as of this date 12/31/22. Future oriented and protective factors identified. Progress Toward Goals/Plan:: Progress noted. Pt discussed successful completion of several exposure goals throughout the week and was able to open up in group regarding his mental health. Shared he feels he has gained more insight into his own mental health symptoms and triggers which has helped him realize he had been significantly minimizing his mental health symptoms. Shared improved overall mood, however is continuing to struggle with significant anxiety and negative core beliefs. Pt is actively working to identify and address his negative core beliefs as well as use skills to continue to work on reducing anxiety. Pt however continues to struggle with comfort in consistent application of grounding activities. Will continue IOP tx to improve mood stability, reduce use of safety behaviors, and promote mood stability. Time Stopped:: 11:28
--- NOTE | 2022-12-31 09:02 | BH.SGPN.GN ---
Behaviors/Verbalizations/Mental Status: []Pt alert and oriented, casually dressed and groomed. Eye contact fair to good. Motor activity appropriate. Speech within normal limits. Affect congruent, mood euthymic and anxious. Thoughts linear, logical, no signs of hallucinations or delusions. Reviewed pt?s symptom tracker, risk for suicidal ideation reported as 1/5 which is within pt baseline, denies plan, or active intent as of 12/31/22. Client Response/Progress/Benefit: []Pt responded well to session, open to contributing with group and engaged. Pt reports feeling excited this morning, explaining that he has plans to go hiking with a co-worker this weekend. Identified this as a mental health win as he does not often socialize with others but feels this will continue to help in improving his anxiety in social settings. Additional win noted as taking his dog to the dog park yesterday as a means of managing his anxiety. Reports that physical activity helps at times with reducing the anxious sense of urgency. Current stressor identified as recently reaching out to HR about getting a raise and being denies this request. Discussed trying not to ruminate and instead focus on what is in his control moving forward. Pt appeared to benefit from supportive feedback and empathic responses of the group, as well as reflecting on mental health wins. Pt will continue IOP tx to promote mood stability, reduce anxiety safety behaviors, and continue to improve functioning. Narrative Note: []
--- NOTE | 2022-12-31 10:10 | BH.SGPN.GN ---
Behaviors/Verbalizations/Mental Status: [] Eye contact is good. Motor activity is appropriate. Appearance is casual. Speech is Appropriate. Mood is anxious. Affect is congruent. Thoughts are linear and logical. No evidence of psychosis. Client Response/Progress/Benefit: [] Pt was an active participant in group discussions and activities. Attentive during psychoeducation. Engaged during activity in which she identified which type of foods (i.e. carbs, sugar, salt, fast food, caffeine, etc) she seeks out when sad, tired, angry, rushed, anxious, etc. Pt was able to identify an unhealthy food cycle which included; go out to lunch--> grab pasta and high carbs foods---> feeling tired in the evening, miss workout, less productive, seek out caffeine. Pt was able to identify the impact that certain foods have on her mental health which was beneficial. Will continue in IOP to maintain safety, increase healthy coping, and stabilize mood. Narrative Note: []
--- NOTE | 2023-01-01 09:00 | BH.SGPN.GN ---
Behaviors/Verbalizations/Mental Status: [] Eye contact is good. Motor activity is restless. Appearance is casual. Speech is Appropriate. Mood is anxious. Affect is congruent. Thoughts are linear and logical. No evidence of psychosis. Reviewed daily check in sheet and no reports of suicidal ideations or intent. Client Response/Progress/Benefit: [] Pt was an active participant in group discussion. Attentive. Emotion for today is motivated. Shared with the group I had no panic attacks yesterday. States that he was able to utilize mindfulness skills and live in the moment. Yesterday was a good day. Shared that yesterday's group on 'fixed vs growth' mindset was very informative and helped him challenge thinking and change perspectives. Progress noted per pt report. Benefited from group support, encouragement, and feedback. Will continue in IOP to maintain gains, prevent decompensation, and to stabilize mood. Narrative Note: []
--- NOTE | 2023-01-01 10:15 | BH.SGPN.GN ---
Behaviors/Verbalizations/Mental Status: []Pt alert and oriented, neatly dressed and groomed. Eye contact good. Motor activity appropriate. Speech within normal limits. Affect congruent, mood euthymic. Thoughts linear, logical, no signs of hallucinations or delusions. Client Response/Progress/Benefit: []Pt was an active participant during small group discussions. Attentive during psychoeducation on the six types of boundaries. Pt along with peers contributed to interactive discussion on defining what a boundary is and group identified challenges to setting boundaries. Pt discussed personal barriers of guilt and fear of ?not being a team player?. Pt?s group also identified the benefits of boundary setting which included ?preventing resentment and open and honest communication.? Pt contributed during his small group discussion. benefited from increased awareness and insight on the importance/benefit to setting health boundaries. Will continue IOP tx to combat distorted thinking patterns, improve self-confidence, and improve mood stability. Narrative Note: []
--- NOTE | 2023-01-01 11:15 | BH.SGPN.GN ---
Behaviors/Verbalizations/Mental Status: []Pt alert and oriented, casually dressed and groomed. Eye contact good. Motor activity appropriate. Speech within normal limits. Affect congruent, mood dysthymic and anxious. Thoughts linear, logical, no signs of hallucinations or delusions. Client Response/Progress/Benefit: []Pt remained an active participant AEB providing contributions to group discussion, listening attentively to others, and engagement in small group discussion. Pt attentive during psychoeducation on the different boundary styles. Pt did well to work within the small group on identifying strategies for establishing and maintaining healthy boundaries. Pt identified wanting to work on improving his emotional boundaries by taking steps to increase his ability to say ?no? to others when needing to take time for his own self-care or emotional processing. Appeared to benefit from increased awareness of boundary styles and strategies to improve setting boundaries. Will continue IOP tx to increase consistent use of healthy coping skills, challenge distortions and reduce safety behaviors, and prevent decompensation. Narrative Note: []
--- NOTE | 2023-01-06 09:15 | BH.MDN ---
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 Additionally, discussed strategies for continuing to advocate for self and maintain healthy boundaries. Eye Contact:: Good Motor Activity:: Restless Appearance:: Neat and Casual Speech:: Appropriate Mood:: Euthymic and Anxious Affect:: Congruent Thoughts:: Linear, Logical and No evidence of hallucinations/delusions noted Staff Interventions:: motivational interviewing, psychoeducation on: (Reviewed components of ERP therapy), CBT techniques, mindfulness skills, strengths perspective and goal setting Client Response:: Pt receptive of session, actively engaged throughout. Reports several new stressors in his life, but feels he is improving in his overall ability to manage these. Discussed several skills such as spending time outdoors hiking or playing basketball, recognizing and trying to challenge/replace his mistaken beliefs, as well as continuing to put efforts in establishing and maintaining healthier boundaries. Provided an example, noting that he was informed he would be moving to working 10-hour days four days a week with some weekend requirements. 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 Described feeling more empowered by this as he was able to maintain the boundary despite a coworker pushing back. Shared plans to continue to work on reducing ?people pleasing? behaviors. Pt went on to discuss his recent exposure goal to eat an apple in front of the group. Indicated he had purchased the apples and planned to follow through with this; however, has only been in IOP group once since the goal had been established and he forgot to bring his apple with him to group. Pt noted plans to continue with this goal for next session. Pt discussed wanting to continue to work on addressing his avoidant restrictive food intake disorder as he is struggling with negative self-talk and shame related to it. Receptive of discussion reviewing pt expectations, limitations of ERP therapy and risks of pushing pt?s comfort levels to quickly, and what realistic progress can look like. Insight that realistic progress would mean ongoing struggles with this area of his life and transitioning to individual outpatient therapy with a provider who specializes in anxiety and disordered eating. Identified a realistic goal for him would be making strides towards adding another ?safe food? to his list of foods he is comfortable eating. Identified wanting to work on adding rice to his repertoire as it is the most versatile food he can think of. Shared being comfortable with making or being around rice, but begins to feel uncomfortable at the idea of having to consume it. Worked with therapist to identify a realistic exposure goal and pt open to making and putting rice on his plate at dinner each day this week to begin normalizing the presence of rice with safe foods and improve his willingness to be around it while consuming other items. Risks/Concerns:: Pt reports passive thoughts of but describes these as fleeting in nature. Denies specific or active plan or intent as of this date 01/06/23. Future oriented and protective factors include pt son and goals for his future. Progress Toward Goals/Plan:: Progress noted. Pt reports improved ability to manage stress and is actively making strides in applying skills for managing his anxiety. Pt is actively engaged in behaviors activation skills as well and reports spending more time with supports, increase time outside, and getting back into jogging which has been a difficult decision for pt. Reports improved use of self-compassion and increased ability to challenge his negative core beliefs and replace these with kinder statements. Reports making strides on his ERP goals as well which has improved his self-talk as well. Continues to struggle with significant negative core beliefs as well as distorted thought patterns. Reports difficulties with feeling he deserves to set boundaries or feeling like a burden. Continues to struggle with significant anxiety as well and often has difficulties slowing down or using grounding skills. Pt will continue IOP tx to improve mood stability, continue to work on self-compassion, and prevent decompensation.
--- NOTE | 2023-01-06 10:10 | BH.SGPN.GN ---
Behaviors/Verbalizations/Mental Status: []Client alert and oriented, casually dressed and groomed. Eye contact good. Motor activity appropriate. Speech within normal limits. Affect congruent, mood euthymic and anxious. Thoughts linear, logical, no signs of hallucinations or delusions. Client Response/Progress/Benefit: []Pt engaged in session AEB listening attentively to others and providing insight to group discussion. Pt engaged in activity, able to connect how it can be uncomfortable and difficult to accept when things are out of one?s own control. Pt worked with group to identify what things in life can be hard to accept. Group identified things hard to accept as: of a loved one, body image, loss of relationship, mental health diagnosis, other?s behaviors, and past decisions. Pt worked on identifying what personal things are hard to accept for themself, sharing struggling with his mental health, body image, avoidant restrictive food intake disorder, and changes in physical limitations are things pt struggles with accepting. Pt seemed to benefit from increased awareness of importance of acceptance. Pt to continue IOP to improve mood stability, increase application of distress tolerance skills, and prevent decompensation. Narrative Note: []
--- NOTE | 2023-01-06 11:10 | BH.SGPN.GN ---
Behaviors/Verbalizations/Mental Status: []Pt alert and oriented, neatly dressed and groomed. Eye contact good. Motor activity appropriate. Speech within normal limits. Affect congruent, mood euthymic. Thoughts linear, logical, no signs of hallucinations or delusions. Client Response/Progress/Benefit: []Pt responded well to session AEB taking notes and contributing to discussion throughout. Pt engaged as group continued discussion on acceptance and the mental health benefits of practicing acceptance. Pt and peers identified what makes acceptance challenging and pt completed a self-reflection exercise on what is hard to accept in pt's life. Pt identified struggling to accept that ?my eating disorder affects my health and social life? Group identified strategies to increase acceptance and pt shared wanting to focus on giving himself credit for small wins. Pt appeared to benefit from gaining insight and learning strategies to increase acceptance. Pt will continue IOP tx to promote mood stability, continue? to combat distortions, and further reduce avoidance. Narrative Note: []
--- NOTE | 2023-01-07 10:10 | BH.SGPN.GN ---
Behaviors/Verbalizations/Mental Status: []Pt alert and oriented, casually dressed and appearing disheveled/ungroomed. Eye contact good. Motor activity appropriate. Speech within normal limits. Affect congruent, mood euthymic and anxious. Thoughts linear, logical, no signs of hallucinations or delusions. Client Response/Progress/Benefit: []Pt was an active participant AEB providing input and was actively taking notes. Did well to participate and provide suggestions in group activity. Connected with the topic of pitfalls and listened to group discussion on internal and external barriers that prevent from choosing a healthier path to mental wellness. Group worked together to identify examples of personal internal pitfalls and pt identified his as fear of failure, negative core beliefs, and avoidance. Pt benefited from group as Pt learned to better identify and normalize potential barriers to improving mental health symptoms. Pt will continue IOP tx to prevent decompensation, increase mood management skills, and continue to promote healthy communication and boundary setting with supports. Narrative Note: []
--- NOTE | 2023-01-07 11:10 | BH.SGPN.GN ---
Behaviors/Verbalizations/Mental Status: []Pt alert and oriented, casually dressed and groomed. Eye contact good. Motor activity restless. Speech within normal limits. Affect congruent. Mood anxious. Thoughts linear, logical, no signs of hallucinations or delusions. Client Response/Progress/Benefit: []Pt was an active participant AEB contribution to discussion, taking notes, and willingness to engage in group activity. Connected with the topic of pitfalls and listened to group discussion on internal and external barriers that prevent from choosing a healthier path to mental wellness. Group worked together to identify examples of internal pitfalls. Pt identified personal pitfalls to include: avoidance, fear of failure, negative core beliefs, impatience, and unhelpful coping skills. Pt benefited from group as pt learned to better identify and normalize potential barriers to improving mental health symptoms. Pt to continue IOP to challenge distorted thoughts, increase healthy coping, and prevent decompensation.
--- NOTE | 2023-01-08 09:05 | BH.SGPN.GN ---
Behaviors/Verbalizations/Mental Status: [] Eye contact is good. Motor activity is restless. Appearance is casual. Speech is Appropriate. Mood is anxious. Affect is congruent. Thoughts are linear and logical. No evidence of psychosis. Reviewed daily check in sheet and pt reports 1/5 for suicidal ideations and 0/5 for intent. This has been baseline since starting IOP. Client Response/Progress/Benefit: [] Pt was an active participant in group discussion. Attentive. Daily symptom tracker notes 4/5 for anxiety and 2/5 for depression. Shared with the group increased anxiety today due to flying to [place]. Shared that he anxiety usually stems from uncertainly, feeling powerless, and having not control over a situation. Group discussion on the role of uncertainly in anxiety and coping strategies to implement which was beneficial. He reports that his mood is improving and he is noticing more good days. Yesterday he was very active which helped his mood. I'm feeling healthier. Also reports setting more realistic expectations for himself and his mental health which has also been beneficial. Will continue in IOP to maintain safety, prevent decompensation, and increase healthy coping skills. Narrative Note: []
--- NOTE | 2023-01-08 10:03 | BH.SGPN.GN ---
Behaviors/Verbalizations/Mental Status: [] Client alert and oriented, neatly dressed and groomed. Eye contact good. Motor activity appropriate. Speech within normal limits. Affect full, mood euthymic. Thoughts linear, logical, no signs of hallucinations or delusions Client Response/Progress/Benefit: [] Client was an active participant in group discussion and experiential activity. Attentive during psychoeducation on resilience. Participated in interactive discussion with peers on the definition of resilience and where it comes from. Group identified that resiliency can be impacted by; past experiences, physical and mental health status, and supports. Client discussed and connected how when he utilized supports in past he felt he was able to get additional feedback that was positive that he didn't see before. Able to relate experiential activity of group juggle to topics of resilience. Worked well with peers in small group in which they identified factors that contribute to resilience. Benefited from increased awareness of resilience and the factors that contribute to building resilience. Will continue in IOP to prevent decompensation and further promote mood stability. Narrative Note: []
--- NOTE | 2023-01-08 11:13 | BH.SGPN.GN ---
Behaviors/Verbalizations/Mental Status: [] Client alert and oriented, neatly dressed and groomed. Eye contact good. Motor activity appropriate. Speech within normal limits. Affect full, mood euthymic. Thoughts linear, logical, no signs of hallucinations or delusions Client Response/Progress/Benefit: [] Client responded well to session AEB completing the resilience worksheet provided. Client actively participated in the discussion and worked cooperatively with group to identify strategies to enhance each of the components discussed. Client reports belief they already use resilience trait of ?self-awareness.? Client discussed that they could work on having a more positive view of self. Client went on to discuss progress towards that with addressing their negative core beliefs. Client seemed to benefit from discussing strategies for improving personal resilience and identifying resilience traits client already possesses. Will continue IOP tx to increase self-worth and distress tolerance skills. Narrative Note: []
== END 2023-01-11 23:59 ==
LOC: BHIOP 07:19
PROVIDERS: PCP Registered Nurse; Referring Provider Psychiatry & Neurology Psychiatry; Visit Provider Psychiatry & Neurology Psychiatry
DX: F33.2 Major depressive disorder, recurrent severe without psychotic features (principal); F41.1 Generalized anxiety disorder; F43.10 Post-traumatic stress disorder, unspecified; F50.82 Avoidant/restrictive food intake disorder
CPT/HCPCS: S9480; 90834; 90837; 90853

== ENCOUNTER 2023-01-12 07:16 | Outpatient (RCR) | payer OTHER, SELFPAY ==
--- NOTE | 2023-01-07 09:00 | BH.SGPN.GN ---
Behaviors/Verbalizations/Mental Status: [] Eye contact is good. Motor activity is appropriate. Appearance is casual. Speech is Appropriate. Mood is anxious. Affect is congruent. Thoughts are linear and logical. No evidence of psychosis. Reviewed daily check in sheet and pt reports 1/5 for suicidal thoughts/not wanting to be in existence and 0/5 for intent. This has been pt's baseline. Client Response/Progress/Benefit: [] Pt was an active participant in group discussion. Attentive. Daily symptom tracker notes 4/5 for anxiety and 2/5 for depression. Pt shared work stressors which have been impacting his overall mood. 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 Brief check-in. Overall reports anxiety has been stable , however today has an upcoming flight to [place] and lost his wallet today. Progress noted per pt report. Benefited from group support, encouragement, and feedback. Will continue in IOP to maintain safety, prevent decompensation, and to stabilize mood. Narrative Note: []
[2023-01-12 00:40] VITALS: BP 169/100; PULSE 87
--- NOTE | 2023-01-13 09:03 | BH.SGPN.GN ---
Behaviors/Verbalizations/Mental Status: []Pt alert and oriented, casually dressed and groomed. Eye contact good. Motor activity appropriate. Speech within normal limits. Affect congruent, mood euthymic, anxious. Thoughts linear, logical, no signs of hallucinations or delusions. Reviewed pt?s symptom tracker, no reported suicidal ideation, denies plan, or active intent as of 01/13/23. Client Response/Progress/Benefit: []Pt responded well to session, open to processing with group and engaged. Pt reports feeling exhausted this morning as he did not get much sleep over the weekend due to several complications in flying to [place] to pick-up his son from pt?s ex-. Identified current mental health wins as using several healthy coping skills to manage the stress and anxiety associated with flight delays and complications. Shared challenging himself to socialize with fellow passengers on the plan rather than isolate and ruminate on the stressor at hand. Expressed having a more enjoyable experience as a result. Additional win noted as spending time with his son after returning home prior to his son returning to school for the year. Current stressor noted as struggling to be present as he is still tired from the weekend. Identified the importance of self-care and self-compassion as he readjusts to his regular schedule. Pt appeared to benefit from supportive feedback of the group, as well as reflecting on mental health wins. Pt will continue IOP tx to promote mood stability, encourage continued coping skill application, and prevent decompensation. Narrative Note: []
--- NOTE | 2023-01-13 10:10 | BH.SGPN.GN ---
Behaviors/Verbalizations/Mental Status: [] Eye contact is good. Motor activity is restless. Appearance is casual. Speech is Appropriate. Mood is euthymic. Affect is congruent. Thoughts are linear and logical. No evidence of psychosis or hallucinations. Client Response/Progress/Benefit: [] Pt was an active participant in group discussion and activity. Attentive during psychoeducation. Along with peers was able to identify barriers to taking action on her mental health which included: fear of failure, the unknown, change, one's environment, past negative experiences, being passive, and fear of vulnerability. Identified several symptoms and stressors that he feels are holding him back from progress such as fear of failure with his eating disorder, poor boundaries, reassurance seeking, and negative self-talk. Benefited from increased self-awareness of obstacles. Will continue in IOP to continue use of healthy coping, improve positive self-talk, and prevent decompensation.
--- NOTE | 2023-01-13 10:47 | PCM.BH.PN_ITS ---
Progress Note Progress Note: History of Present Illness/Interim History: The patient is a 32-year-old male with a history of anxiety, depression and PTSD who is seen in follow-up at the [facility] [place] behavioral health IOP program. I last saw the patient 3 weeks ago and at that time his Lexapro was increased to 30 mg p.o. daily. The patient feels that the increased dose has helped him feel less anxious, depressed and much Colmer than before. He has noticed what he thinks is a side effect of the increased dose which is that he sweats more often and more in quantity of sweating. However, he does not want to decrease the dose as he feels the benefit is worth the side effect and he understands that when summer is over this may lessen. According to the staff and the patient he is doing well in the program and is engaged in participating. He is using the skills that he has learned. He is still having a few panic attacks a week but says they are weaker than before and he is able to use relaxation exercises to abort them for the most part. He still has guilt which is a chronic for him but he denies any passive thoughts of now. He denies passive, fleeting suicidal ideation. He also denies plan for suicide, hopelessness, homicidal ideation, active suicidal ideation, hallucinations or delusions. Current Psychiatric Medications: [] Lexapro 30 mg p.o. daily (on this dose for 3 weeks); clonidine 0 0.1 mg p.o. as needed for panic attacks (only took it 7 or 8 times in the past month or so). Mental Status Examination: [] The patient is a 32-year-old male who is casually dressed and groomed with good hygiene and appears normal for stated age. He is ambulatory with a normal gait and has no psychomotor agitation or retardation. Eye contact is good and speech is normal rate and rhythm and fluent with no pressure. Mood is anxious but less than before. Affect is full and normal. Thought processes goal-directed and organized. Thought content: There is no evidence of passive thoughts of or passive suicidal ideation. There is no evidence of active suicidal ideation, plan for suicide, homicidal ideation, hallucinations or delusions. Reality testing is intact. Judgment is intact. Insight is good. Impulsivity is moderate. Diagnoses: [] 1. Major depressive disorder, recurrent, severe without psychosis (improving) 2. Generalized anxiety disorder 3. PTSD 4. Cluster B traits 5. Work, primary support issues 6. Avoidant restrictive food intake disorder Plan: [] The patient will continue the IOP program at [facility] [place] as the structure, support, education and group therapy will hopefully prevent worsening of the patient's symptoms. He felt safe during the interview and if it anytime he does not feel safe he will let us know or go to the emergency room. The patient wishes to stay on the current dose of Lexapro despite having some sweating that he feels is a side effect of the medication. No other medication changes were made. He will continue to follow-up with his outpatient providers and I will see the patient in follow-up while he is in the IOP program.
--- NOTE | 2023-01-13 15:08 | BH.MDN_ITS ---
Multi-Disciplinary Note Note 60-min Individual: Time Started:: 11:25 Date: 01/13/23 Purpose of session/treatment goals addressed:: Purpose of session was to address current stressors as well as review and process pt ERP homework. Discussed barriers maintaining anxiety and impacting pt ability to see their own progress. Eye Contact:: Good Motor Activity:: Restless Appearance:: Neat and Casual Speech:: Appropriate Mood:: Anxious Affect:: Congruent Thoughts:: Linear, Logical and No evidence of hallucinations/delusions noted Staff Interventions:: thought challenging, mindfulness skills, strengths perspective, goal setting, taught coping skills and other (ERP) Client Response:: Pt receptive of session, actively engaged throughout. Reports feeling proud of his ability to navigate a significant stressor when his plan was delayed while going to pick his son up from pt?s ex- in [place]. Shared that in the past he would have had increased anxiety to the point of panic and likely would have shut down and avoided communicating with any other passengers throughout the wait. Instead, report challenging himself to practice radical acceptance and remind himself ?I don?t have to like it in order to accept it?. Shared this encouraged him to instead make conversation with several other passengers waiting to board. Shared he played cards with several other passengers and ended up having an enjoyable experience. Went on to discuss making progress with completing his homework goal of challenging himself to accept a complement without immediately disqualifying it. Noted it had been uncomfortable, but he was able to successfully complete the goal and felt positive about doing so. Shared plans to continue with this goal as a way of improving on his self-talk and comfort in receiving compliments. Noted however struggling with his ERP goal to place rice on his plate at each meal throughout the week. Disclosed struggling to accept the initial goal and created an expectation for himself to be able to try several grains of rice by the end of the week. Acknowledged this expectation had been unrealistic for himself as he had significantly heightened anxiety just thinking about it. Reports ?I failed several times? as he had amped himself up with the idea of trying the rice that even having it on his plate had become emotionally overwhelming. Shared increased negative self-talk and shame as a result. Therapist worked with client to normalize his emotions throughout the experience and review the importance of healthy levels of exposure to prevent becoming overwhelmed. Discussed taking several steps to improve pt comfort with the idea of consuming rice prior to making consumption a goal. Worked with pt to identify and challenge several underlying negative core beliefs reinforcing shame and discussed changing vocabulary to reduce the use of words like success vs. failure when working on these goals. Client reviewed his reasons for wanting to improve his comfort with eating different kinds of foods and mental health benefits in doing so. Discussed positive self-talk messages pt could use to encourage and calm himself when feeling anxious. Pt and therapist practiced using guided imagery in session to increase pt comfort. Pt able to improve comfort in session to the point of stirring a bowl of cooked rice and smelling it as he described a comforting scene. Reports plans to practice applying guided imagery skills to goal of stirring and smelling, without attempting to consume, a bowl of rice 3x this week. Risks/Concerns:: Pt reports passive thoughts of but describes these as fleeting in nature. Denies specific or active plan or intent as of this date 01/13/23. Future oriented and protective factors include pt son and goals for his future. Progress Toward Goals/Plan:: Progress noted in pt improved ability to manage a significant stressor over the weekend, as well as continued progress in improving his ability to take compliments and practice positive self-talk. Continues to struggle with significant negative core beliefs and shame surrounding food avoidance which reinforces negative self-image and anxiety. Pt is however making progress in this area and continues to report increased hope in his ability to practice acceptance of ERP taking longer than he had initially hope to begin to see more progress. Will continue IOP tx to further improve self-talk, thought challenging, and anxiety management skills. Time Stopped:: 12:35
--- NOTE | 2023-01-14 09:00 | BH.SGPN.GN ---
Behaviors/Verbalizations/Mental Status: [] Pt alert and oriented, neatly dressed and groomed. Eye contact good. Motor activity appropriate. Speech within normal limits. Affect congruent, mood euthymic. Thoughts linear, logical, no signs of hallucinations or delusions. Reviewed pt?s symptom tracker, no risk for suicidal ideation, plan, or intent 01/14/23 Client Response/Progress/Benefit: []Pt responded well to session, attentive and receptive to feedback. Pt reports feeling joyful this morning. Pt shared yesterday pt made the most progress I have made on my eating disorder in 20 years. Pt was able to face one of his unsafe foods, work through a panic attack in session, and have a positive day after that. Pt shared in the past this would have impacted his entire day and led to pt not eating. Pt reflected on his willingness to face challenges and gave himself credit which is progress. Pt shared his stressor today was getting his dogs inside this morning. Pt appeared to benefit from connecting with peers and challenging perspective. Pt will continue IOP tx to promote mood stability, further increase self-care, and reduce negative thinking patterns. Narrative Note: []
--- NOTE | 2023-01-14 10:10 | BH.SGPN.GN ---
Behaviors/Verbalizations/Mental Status: [] Eye contact is good. Motor activity is restless. Appearance is casual. Speech is Appropriate. Mood is euthymic. Affect is congruent. Thoughts are linear and logical. No evidence of psychosis. Client Response/Progress/Benefit: [] Pt was an active participant in group discussion. Attentive during psychoeducation on Problem-Solving in the Moment Protocol. Participated in group experiential activity. Pt provided feedback during interactive group discussion in which pt and peers worked through an example of a problem (Managing Anxiety) in which they identified a goal (minimizing anxiety) and identified barriers. Barriers identified included fear, past experiences, lack of motivation, external obstacles, and stigma. During the experiential activity pt worked with peers to problem solve using the Problem Solving in the Moment Protocol. Group was able to complete the activity and pt was able to practice in the moment problem-solving and make connections between problem-solving for activity and in real-life situations. Increased awareness of problem-solving strategies. Will continue in IOP to improve anxiety reduction skills, increase confidence, improve self-talk, and prevent decompensation.
--- NOTE | 2023-01-14 11:10 | BH.SGPN.GN ---
Behaviors/Verbalizations/Mental Status: []Pt alert and oriented, casual dress, hygiene tended to. Eye contact good. Motor activity WNL. Speech appropriate rate and tone. Affect congruent, mood anxious and euthymic.? Thoughts linear, logical, no signs of hallucinations or delusions. Client Response/Progress/Benefit: []Pt engaged in session as evidenced by listening to others and providing input throughout. Pt completed problem solving example with group and identified a goal they want to work on. Goal identified as: Creating a kinder internal dialogue/more positive self-talk. Pt?s barriers included: negative thinking/distortions, not giving self credit, shame, and fear of failing. Pt also identified steps they could take such as being open with his individual therapist and reminding himself that his therapist is there to help him make continued mental health progress. Pt seemed to benefit from learning about problem solving methods and rehearsing problem-solving skills in the moment. Pt will continue IOP tx to promote mood stability, improve confidence in self, and further reduce negative thinking. Narrative Note: []
--- NOTE | 2023-01-15 09:05 | BH.SGPN.GN ---
Behaviors/Verbalizations/Mental Status: [] Eye contact is good. Motor activity is appropriate. Appearance is casual. Speech is Appropriate. Mood is euthymic. Affect is full. Thoughts are linear and logical. No evidence of psychosis. Reviewed daily check in sheet and pt reports 1/5 for suicidal thoughts and 0/5 for intent. This is baseline. Client Response/Progress/Benefit: [] pt was an active participant in group discussions. Attentive. Daily symptom notes 3/5 for anxiety and 2/5 for depression/irritability.. Overall reports mood is better. Mental health wins reported to be related to exercising and self-care. Physical activity allows him to ?decompress? as well as other mental health benefits. Stressors involve change in his life which has brought up several emotions. Elaborated further on the changes and their impact. Emotion for today is ?anxious?. Progress noted per pt report as he utilized skills and reports increased insight and awareness. Benefited from group support, encouragement, and feedback. Will continue in IOP to maintain safety, prevent decompensation, and increase healthy coping Narrative Note: []
--- NOTE | 2023-01-15 10:15 | BH.SGPN.GN ---
Behaviors/Verbalizations/Mental Status: []Pt alert and oriented, neatly dressed and groomed. Eye contact good. Motor activity restless. Speech within normal limits. Affect congruent, mood anxious. Thoughts linear, logical, no signs of hallucinations or delusions. Client Response/Progress/Benefit: []Pt was an active?participant in small group discussion. Pt?s group worked together to identify benefits of healthy relationships which included companionship and emotional support. Group identified factors that lead to unhealthy relationships. Pt?s personal factors included fear of setting boundaries, giving in to other people?s needs, and avoidance. Actively participated in group experiential activity and expressed ideas to group. Benefited from increased insight and awareness of benefits of healthy relationships and factors that contribute to unhealthy relationships. Will continue IOP tx to promote mood stability, reinforce use of healthy coping skills, and improve self-confidence. Narrative Note: []
--- NOTE | 2023-01-15 11:10 | BH.SGPN.GN ---
Behaviors/Verbalizations/Mental Status: [] Client alert and oriented, casually dressed and groomed. Eye contact good. Motor activity appropriate. Speech within normal limits. Affect congruent, mood euthymic, slightly anxious. Thoughts linear, logical, no signs of hallucinations or delusions. Client Response/Progress/Benefit: [] Client responded well to session, engaged and taking notes. Worked with group to identify characteristics of healthy and unhealthy relationships. Attentive during psychoeducation about characteristics of healthy, unhealthy, and abusive relationships. Client stated within their current relationships he does well with communication, respect, and honesty. Client reported an area he would like to improve in is trust. Client shared past relationship disappointments have led to increased difficulties trusting new relationships. Appeared to benefit from identifying area client wants to work on to build healthier relationships. Client to continue IOP to increase healthy coping skills, challenge distortions, and prevent decompensation. Narrative Note: []
--- NOTE | 2023-01-20 10:00 | BH.SGPN.GN ---
Behaviors/Verbalizations/Mental Status: [] Eye contact is good. Motor activity is restless. Appearance is casual. Speech is Appropriate. Mood is anxious. Affect is congruent. Thoughts are linear and logical. No evidence of psychosis. Reviewed daily check in sheet and no reports of suicidal ideations or intent. Client Response/Progress/Benefit: [] Pt was an active participant in group discussion. Attentive. Daily symptom tracker notes 07/19 for anxiety and depression. Emotion for today is anxious. States I woke up anxious and I don't know why. Last evening he continued to work on exposure treatment for his eating disorder. He briefly explained his aversion to most foods and how this impacts his mental health as well as functioning. Elaborated that food is tied with most social events and due to his strong aversion to foods and eating in-front of others this significancy impacts his mental health. I believe its the root of my depression. I've done more on this while in [facility] than I have my entire life. Shared exposure goals last night and how this led to increased anxiety and panic attacks. Progress noted per pt report as he is optimistic that if he continues working on eating issues it will improve his depression. Benefited from group support, feedback, and encouragement. Will continue in [facility] to maintain safety, prevent decompensation, and increase healthy coping. Narrative Note: []
--- NOTE | 2023-01-20 10:15 | BH.SGPN.GN ---
Behaviors/Verbalizations/Mental Status: []Pt alert and oriented, neatly dressed and groomed. Eye contact good. Motor activity appropriate. Speech within normal limits. Affect congruent, mood euthymic. Thoughts linear, logical, no signs of hallucinations or delusions. Client Response/Progress/Benefit: [] Pt receptive to session AEB contributing to discussion, as well listening attentively to others, and taking notes. Worked with group to brainstorm the positive and negative aspects of stress on physical and mental health. Group did well to identify the benefits of stress as well as the impact of distress on performance, relationships, and mental health. Pt identified their personal top stressors as: eating disorder treatment, physical health, and not having a goal or upward mobility at work. Pt seemed to benefit from increased awareness of current stressors and impact stress has on mental health. Recommended to continue IOP tx to promote gains, further increase distress tolerance skills, and improve self-compassion. Narrative Note: []
--- NOTE | 2023-01-20 11:15 | BH.SGPN.GN ---
Behaviors/Verbalizations/Mental Status: [] Eye contact is good. Motor activity is appropriate. Appearance is casual. Speech is Appropriate. Mood is anxious and content. Affect is congruent. Thoughts are linear and logical. No evidence of psychosis. Client Response/Progress/Benefit: []Pt was an active participant in group discussions and experiential activity. Attentive during psychoeducation on the 4 A's (Avoid, adapt, alter, accept) of coping with stress as well as strategies to identify stressors in which one has no control, little control, or a great deal of control over. Shared that he would benefit most from working on alter in regards to coping with his eating disorder and learning to accept smaller wins as progress. Was able to identify the connection between the experimental activity and utilization of stress management skills. Benefited from increased awareness of stress management strategies. Will continue in IOP to maintain progress, prevent decompensation, and to increase healthy coping skill application. Narrative Note: []
--- NOTE | 2023-01-21 09:00 | BH.SGPN.GN ---
Behaviors/Verbalizations/Mental Status: []Pt alert and oriented, casually dressed and groomed. Eye contact good. Motor activity appropriate. Speech within normal limits. Affect congruent, mood anxious. Thoughts linear, logical, no signs of hallucinations or delusions. Reviewed pt?s symptom tracker, no risk for suicidal ideation, plan, or intent. Client Response/Progress/Benefit: []Pt responded well to session, receptive to group support. Pt reported mental health positive as taking time for self-care yesterday by playing basketball and hiking with his kid. Pt reported additional mental health positive as seeing improvement from slowly addressing his eating disorder. Stated he still gets severe anxiety when working on his eating disorder, but has been able to manage the anxiety better. Client reported current stressor as feeling really anxious recently with no apparent trigger. Stated skills he has been using are 5 senses and box breathing. Pt seemed to benefit from support from group support. Pt will continue IOP tx to continue use of healthy coping, challenge distorted thoughts, and prevent decompensation.
--- NOTE | 2023-01-21 11:05 | BH.SGPN.GN ---
Behaviors/Verbalizations/Mental Status: []Pt alert and oriented, neatly dressed and groomed. Eye contact good. Motor activity restless-legs tapping Speech within normal limits. Affect congruent, mood euthymic. Thoughts linear, logical, no signs of hallucinations or delusions. Client Response/Progress/Benefit: [] Pt engaged participant AEB completing self-assessment worksheet and providing input throughout discussion. Pt completed worksheet identifying current self-care practices and what self-care activities pt wants to start using. Pt selected psychological self-care to begin practicing more consistently. Pt plans to do this by using positive self-talk and challenging distortions when he catches them. Appeared to benefit from completing the self-care evaluation and gaining insights into current self-care practices, as well as identifying areas in which pt would like to improve upon.? Pt will continue IOP tx to promote gains, further decrease avoidance behaviors, and improve self-confidence. Narrative Note: []
--- NOTE | 2023-01-21 14:55 | BH.MDN ---
Multi-Disciplinary Note Note 60-min Individual: Time Started:: 10:12 Date: 01/21/23 Purpose of session/treatment goals addressed:: Purpose of session was to discuss pt concerns regarding recent influx in anxiety symptoms as well as review and process pt ERP homework. Eye Contact:: Good Motor Activity:: Restless Appearance:: Neat and Casual Speech:: Appropriate Mood:: Euthymic and Anxious Affect:: Congruent Thoughts:: Linear, Logical and No evidence of hallucinations/delusions noted Staff Interventions:: thought challenging, mindfulness skills, strengths perspective, goal setting and other (worked with pt on next ERP goal) Client Response:: Pt receptive of session, openly discussed current symptoms and stressors impacting mental health. Pt shared that over the past few days he has felt more anxious with no apparent cause. Shared thoughts that ?something big is going to happen? and reflected on past times in which he has felt this way. Pt shared insight that he may be struggling with adjusting to feeling more stable and not having a major life stressor to manage. Expressed difficulties in accepting that things can be stable and it does not mean ?the other shoe is going to drop?. Able to work with therapist on challenging use of emotional reasoning. Additionally explained he is scheduled to work for the next 10 days in a row which may also be contributing to increase anxiety. Discussed self-care strategies important to ensure he doesn?t get burnt out over the next 10 days. Identified plans to play basketball in the mornings, spend time with his son when off the clock, and continue to ensure he is getting adequate sleep. Went on to discuss completing his exposure goal for the week, noting ?I?ve been trying to give myself credit for the little wins?. Described experiencing increased panic and negative self-talk as he completed the task on 4 occasions over the past week but was able to use mindfulness and guided imagery to calm himself and continue. Expressed feeling silly about being proud as he feels this is something he ?should just be able to do? but did well to challenge these self-critical thoughts and identify the progress he has made. Discussed realistic expectations. Pt engaged in a guided imagery exercise with therapist as he practiced exposure goal to stir rice and put it on a spoon as though he is going to take a bite. Did well to raise spoon to mouth and reported this was a manageable level of anxiety. Believes completing this exercise 5x over the next week would help in preparing him to move towards goal of consuming the rice. Risks/Concerns:: Pt continues to report passive thoughts of but describes these as reduced in severity and duration, describes as more chronic passive in nature. Denies specific or active plan or intent as of this date 01/21/23. Future oriented and protective factors include pt son and goals for his future. Progress Toward Goals/Plan:: Progress noted in pt improved ability to identify and challenge thought distortions reinforcing pt anxiety. Notes improved ability to use grounding skills while completing ERP homework and has been able to practice more self-compassion in this area as well, however could continue to focus on compassionate self-talk. Pt is making consistent progress in ERP goals and has improved on establishing more realistic expectations of himself. Does report increased anxiety over the past week, as well as ongoing issues with intrusive thoughts and negative self-talk.. Will continue IOP tx to further improve self-talk, thought challenging, and anxiety management skills. Time Stopped:: 11:14
--- NOTE | 2023-01-22 09:00 | BH.SGPN.GN ---
Behaviors/Verbalizations/Mental Status: [] Eye contact is good. Motor activity is restless. Appearance is casual. Speech is Appropriate. Mood is anxious. Affect is congruent. Thoughts are linear and logical. No evidence of psychosis. Reviewed daily check in sheet and no reports of suicidal ideations or intent. Client Response/Progress/Benefit: [] Pt was an active participant in group discussion. Attentive. Daily symptom tracker notes 07/19 for depression and anxiety. Emotion for today is optimistic. Shared that he woke up this morning with a headache and anxiety which he is fearful might guide his day. Group helped with challenging thoughts and feedback to help change perspective. He continues to work on eating issues which are at the root of his depression during individual counseling sessions. Discussed plan to transition away from IOP in the coming weeks and is starting to work on linking with outpatient therapist would is willing to continue work on Eating issues. Anxiety about discharging from IOP I really like coming here. Progress noted as he is using skills and addressing core issues. Benefited from group support, encouragement, and feedback. Will continue in IOP to maintain safety, increase healthy coping, and prevent decompensation. Narrative Note: []
--- NOTE | 2023-01-22 10:10 | BH.SGPN.GN ---
Behaviors/Verbalizations/Mental Status: []Eye contact is good. Alert and oriented. Motor activity is appropriate. Appearance is casual. grooming is appropriate. Speech is Appropriate. Mood is euthymic and anxious. Affect is congruent. Thoughts are linear and logical. No evidence of psychosis or hallucinations. Client Response/Progress/Benefit: []Client was an active participate AEB providing contributions, listening attentively to others, and taking notes throughout. The group identified the impact of emotions on communication such as change in tone, body language, shutting down, misperceiving the communication, and not being able to express oneself. During group activity, client identified feeling anxious when he was trying to rely on the group to direct him. Provided insight that situation in which he has limited control often lead to increased anxiety. Client benefited from session by gaining an increased understanding on the importance of managing emotions to continue IOP to further improve mood stability, improve use of skills for better symptom management, and prevent decompensation. Narrative Note: []
--- NOTE | 2023-01-22 11:10 | BH.SGPN.GN ---
Behaviors/Verbalizations/Mental Status: []Pt alert and oriented, casually dressed and groomed. Eye contact good. Motor activity restless. Speech within normal limits. Affect congruent, mood anxious. Thoughts linear, logical, no signs of hallucinations or delusions. Client Response/Progress/Benefit: [] Pt engaged in session AEB Pt listening attentively to peers and providing input. Attentive during psychoeducation on 4 zones of regulation. Pt able to identify feelings and behaviors for each zone. Pt identified coping skills one can use to support self in each zone. Pt reports majority of the time he is in the yellow zone. Reported skills can practice when needs to manage emotions in the yellow zone include: grounding, going outside, breathing, and thought challenge. Benefited from increased education on zones of regulation or stages of alertness for emotions and healthy coping skills to use for each zone. Will continue IOP tx to continue use of healthy coping skills, challenge distortions, and prevent decompensation.
--- NOTE | 2023-01-29 09:00 | BH.SGPN.GN ---
Behaviors/Verbalizations/Mental Status: [] Eye contact is good. Motor activity is restless. Appearance is casual. Speech is Appropriate. Mood is anxious. Affect is congurent. Thoughts are linear and logical. No evidence of psychosis. Reviewed daily check in sheet and pt reports 1/5 for suicidal ideations and 0/5 for intent. This is baseline. Client Response/Progress/Benefit: [] Pt participated at times during the group discussion. Attentive. Emotion for today is nervous. Daily symptom tracker notes 2/5 for depression. Shared that he worked 11 days straight which caught up with him yesterday leading to being extremely tried and having a headache. Identified the need to rest and participate in self-care which he was able to complete. It helped recharge me. Reports feeling anxious and believes that triggers are related to upcoming changes. Shared that next week is going to be his last week in IOP and he is pursing an after therapist to continue to work on his eating issues. Group discussed the emotions that are commonly associated with change and normalized pt's anxiety. Progress noted due to increased insight and awareness of causes of anxiety and need for self-care. Benefited from group support, encouragement, and feedback. Will continue in IOP to prevent decompensation, maintain safety, and increase healthy coping. Narrative Note: []
--- NOTE | 2023-01-29 11:22 | BH.MDN ---
Multi-Disciplinary Note Note 45-min Individual: Time Started:: 10:40 Date: 01/29/23 Purpose of session/treatment goals addressed:: Purpose of session was to discuss pt recent occupational stressors as well as review and process pt ERP homework. Eye Contact:: Good Motor Activity:: Appropriate and Restless Appearance:: Casual Speech:: Appropriate Mood:: Euthymic and Anxious Affect:: Congruent Thoughts:: Linear, Logical and No evidence of hallucinations/delusions noted Staff Interventions:: thought challenging, psychoeducation on: (shame), mindfulness skills, strengths perspective and goal setting Client Response:: Pt receptive of session, openly discussed current symptoms and stressors impacting mental health. Pt shared that he just completed 11 days in a row of work and is feeling somewhat burnt out as a result. 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 Pt described that although administrative changes and poor communication within the workplace continues to cause frustration, he enjoys the actual work that he does and interactions with pt?s. Noted that he is trying to focus on what is in his control in the workplace and continue to engage in consistent self-care outside the work environment to ensure he has healthy outlets. Went on to indicate plans to go hiking with his dog tomorrow, as well as spend time with his son over the weekend. Pt reports successfully completing his ERP homework for the previous week and shared that although he technically completed the goal, he felt like a failure for having more anxiety than he had in previous ERP challenges. Receptive of discussion on self-talk and shame. Pt made connections to how negative self-talk can reinforce feelings of shame and failure. Discussed the impacts this has had specifically on pt?s own core beliefs and expectations for himself regarding his eating disorder treatment. Pt discussed plans to continue looking into outpatient providers specializing in ERP tx this weekend. Discussed plans to repeat ERP goal of previous week and further challenge himself to use affirmational statements as he practices this. Risks/Concerns:: Pt denies any suicidal ideation, plan, or intent as of 01/29/23. Progress Toward Goals/Plan:: Variable progress noted in pt improved ability to manage occupational stressors, as well as reports of increased consistency or self-care activities in daily routine. Pt does report struggling more with negative self-talk and shame. Reports this is specifically related to his eating disorder. Pt continues to make progress in this area though struggles significantly with giving himself credit for this. Time Stopped:: 11:24
--- NOTE | 2023-02-04 09:04 | BH.SGPN.GN ---
Behaviors/Verbalizations/Mental Status: [] Pt eye contact good, casually dressed, motor activity appropriate, speech normal rate and tone, mood euthymic, congruent affect, thoughts linear and intact, no evidence of delusions or hallucinations. Per pt's symptom tracker, pt reports SI as a 1/5. Pt denies any plan or intent as of this date. This is within pt established baseline. Client Response/Progress/Benefit: [] Client responded well to session as evidenced by listening attentively to others and sharing thoughts and feelings. Client reported mental health positive as making several calls for outpatient counseling to continue to progress on addressing his mental health needs. Additional win noted as following through with the program and will complete IOP tx tomorrow. Discussed increased motivation to continue with therapy as a result. Indicated that completing tx is also a stressor as he does not want to backslide. Did well to identify skills to maintain gains. Seemed to benefit from support from peers. Client to continue IOP to continue use of healthy coping skills, maintain mood stability, and prevent decompensation. Narrative Note: []
--- NOTE | 2023-02-04 10:12 | BH.SGPN.GN ---
Behaviors/Verbalizations/Mental Status: []Pt alert and oriented, casually dressed and groomed. Eye contact good. Motor activity appropriate. Speech within normal limits. Affect congruent, mood euthymic. Thoughts linear, logical, no signs of hallucinations or delusions. Client Response/Progress/Benefit: []Pt was an active participant in group discussions. Attentive during psychoeducation on 4 types of conflict styles (Competing, Collaborating, Avoiding, and Accommodating). Worked with group to define conflict and identify how conflict is helpful. With peers identified barriers to addressing or managing conflict which included: not wanting to hurt others, lack of communication skills, and cognitive distortions. Pt believes they use the accommodating style the most. Pt shared being accommodating has made it hard for pt to set boundaries and share his needs, but he has been working on this. Benefited from group due to increase insight and awareness of benefits to conflict, conflict styles, and obstacles to managing conflict. Will continue in IOP to promote mood stability, increase self-compassion, and reinforce healthy coping skills. ? Narrative Note: []
--- NOTE | 2023-02-04 11:10 | BH.SGPN.GN ---
Behaviors/Verbalizations/Mental Status: [] Eye contact is good. Motor activity is appropriate. Appearance is casual. Speech is Appropriate. Mood is anxious. Affect is congruent. Thoughts are linear and logical. No evidence of psychosis. Client Response/Progress/Benefit: [] Pt was an active participant in group discussions and activity. Attentive during psychoeducation. Pt was engaged during the group activity and practiced conflict resolutions skills with an emphasis on stepping outside his typical conflict style. Along with peers was able to reflect on what conflict resolution skills he used during the activity. Pt chose to continue to work on the conflict resolution skill of not stonewalling for the rest of the week. Benefited from practicing conflict resolution skills. Will continue in IOP to maintain gains and prevent decompensation. Narrative Note: [] Behaviors/Verbalizations/Mental Status: [] Eye contact is good. Motor activity is appropriate. Appearance is casual. Speech is Appropriate. Mood is anxious. Affect is congruent. Thoughts are linear and logical. No evidence of psychosis. Client Response/Progress/Benefit: [] Pt was an active participant in group discussions and activity. Attentive during psychoeducation. Pt was engaged during the group activity and practiced conflict resolutions skills with an emphasis on stepping outside his typical conflict style. Along with peers was able to reflect on what conflict resolution skills he used during the activity. Pt chose to continue to work on the conflict resolution skill of not stonewalling for the rest of the week. Benefited from practicing conflict resolution skills. Will continue in IOP to maintain gains and prevent decompensation. Narrative Note: []
--- NOTE | 2023-02-05 07:59 | BH.IGGP_ITS ---
Aftercare Plan Demographics Treatment End Date:: 02/05/23 Psychiatrist:: Georgiana Coleman Psychiatrist Office #:: [phone] [facility]/IOP Therapist:: Lorie Hall Therapist Phone #:: [phone] Medications Home Medications albuterol 90 mcg/actuation aerosol inhaler mcg inhalation 12/09/22 apixaban 5 mg tablet (Eliquis) 5 mg PO BID 12/09/22 prazosin 1 mg capsule 1 mg PO QHS 30 days #30 caps 12/09/22 clonidine HCl 0.1 mg tablet 0.1 mg PO DAILY PRN anxiety 12/23/22 escitalopram oxalate 20 mg tablet (Lexapro) 30 mg (1.5 x 20 mg) PO DAILY 30 days #45 tabs 01/13/23 Plan Details Progress/Aftercare Plan Details:: Pt has responded well to treatment as evidenced by Pt consistently attending IOP sessions, reduction of DSM-5 scores since admission, and self-report. Pt was always attentive and receptive to learning during group and individual sessions. Pt actively applied coping skills outside of IOP setting and reports overall his mood is improved and he is functioning better than he was several months ago. Reports he no longer has active suicidal ideation and is able to feel hopeful and excited for his future, specifically in regards to making further progress on addressing his eating disorder. Pt?s overall symptom reduction is 63% since admission with irritability sx decreasing by 100%, depression decreasing by 60%, and anxiety decreasing by 40%. Pt reports he has increased self-confidence in his ability to continue making progress with exposure therapy and manage stressors, emotions, and conflict. Strategies for Success:: 1. Opposite action! Continue to break that cycle of anxiety and depression by challenging yourself to do the anxious thing. Exposure is carrillo!. 2. Remember that thoughts are thoughts NOT facts! You have power to choose if you give thoughts the time of day or not. 3. self-care! You deserve to take time for you and you also deserve to face the not so fun self-care 4. Self- compassion! You are human and you will make a mistake?BUT that doesn?t mean you are a failure or not good enough. Give yourself credit for all the small (which are also kind of BIG) areas of progress you are making. 5. Practice deep breathing, calming self-talk, and positive affirmations 6. Remember progress isn?t linear! You may have a setback or bump in the road, but that doesn?t mean you?ve lost all progress. 7. Continue to communicate and challenge negative self-talk. Appointments Appointments/Referrals to Other Services:: Pt will discharge from [facility] tx today and is scheduled to begin the [facility] Aftercare Program on 02/18/23. Next appointment with outpatient counselor Costa Rouse scheduled for the beginning of February. Scheduled for medication management to continue with outpatient PCP, Adali Estrada as he continues to work on being connected with an agency specifically focused on treating Avoidant Restrictive Food Intake Disorder.
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
--- NOTE | 2023-02-05 10:10 | BH.SGPN.GN ---
Behaviors/Verbalizations/Mental Status: [] Eye contact is good. Motor activity is restless. Appearance is casual. Speech is Appropriate. Mood is anxious. Affect is congruent. Thoughts are linear and logical. No evidence of psychosis. Client Response/Progress/Benefit: [] Pt was an active participant in group discussions. Attentive during psychoeducation. Participated in interactive discussion on types of support. Pt reports his support as friends, co-workers, hobbies, IOP, dogs, and psychiatrist. Obstacles that awning installer the way to utilizing support were noted to be shame, minimizing, isolation, hiding the truth, guilt, and stigma. Participated in experiential activity and was able to connect this activity to group topic. Benefited from increased awareness of the benefits and importance of maintaining a balanced support system. Today will be pt's last day in [facility]. Narrative Note: []
--- NOTE | 2023-02-05 11:15 | BH.SGPN.GN ---
Behaviors/Verbalizations/Mental Status: []Client alert and oriented, casually dressed and groomed. Eye contact good. Motor activity appropriate. Speech within normal limits. Affect congruent, mood euthymic and anxious. Thoughts linear, logical, no signs of hallucinations or delusions. Client Response/Progress/Benefit: [] Client was an active participant throughout AEB contributing to small group discussion, participating in the activity, and taking notes. Client provided input during discussion on the types of support our supports can provide. Able to identify the types of supports provided by current support system. Client reported gaining awareness that they could benefit from more emotional supports. Shared this will help to maintain progress and continue to make strides in addressing his eating disorder. Client identified steps to achieve this as continuing with outpatient tx, keeping an accomplishment log, and celebrate the wins with supports. Client seemed to benefit from identifying the types of support and areas client could benefit from improving. Pt is d/c from tx today and will continue with outpatient providers. Narrative Note: []
--- NOTE | 2023-02-05 15:31 | BH.MDN ---
Multi-Disciplinary Note Note 45-min Individual: Time Started:: 09:18 Date: 02/05/23 Purpose of session/treatment goals addressed:: The purpose of session was to review tx progress, as well as discuss discharge and aftercare. Eye Contact:: Good Motor Activity:: Restless Appearance:: Neat and Casual Speech:: Appropriate Mood:: Euthymic and Anxious Affect:: Congruent Thoughts:: Linear, Logical and No evidence of hallucinations/delusions noted Staff Interventions:: mindfulness skills, discharge planning, strengths perspective, reviewed DSM-5 and other (exposure reponse prevention techniques) Client Response:: Pt responded well to session, open to meeting with therapist. Pt discussed feeling ?bittersweet? about his last day of IOP tx. Shared feeling he has gain a lot of insight and skills for better managing his mental health. Pt discussed taking ?something from every group? he can apply in his daily life, as well as noted reduced stigma regarding his mental health. Specifically discussed making progress in his ability to give himself more gaudencio and better recognize and give himself credit for his accomplishments. Shared improved use of assertive communication in the workplace as well. Pt discussed the largest and most significant area of progress was in beginning to address his avoidant restrictive food intake disorder. Shared that through Exposure Response Prevention therapy he has been able to make more progress towards adding new foods to his diet and reducing his anxiety surrounding doing so than ever before in tx. Pt discussed successfully completing his exposure goal from last week and was able to bring the spoon to his mouth and imagine eating the rice on some occasions. Discussed needing to take breaks and walk away but did well not to be harsh or critical of himself for doing so. Shared plans to continue this treatment with an outpatient eating disorder or OCD trained clinician and is currently waiting to hear back from [facility]. Pt discussed readiness to complete his final exposure goal of consuming at least one grain. Therapist walked pt through various mindfulness and calming skills in preparation and pt was able to successfully do so. Pt became overjoyed and tearful following successful completion of this goal. Shared feeling empowered and confident in his ability to continue to make progress moving forward. Risks/Concerns:: No report of active suicidal ideations, plan, or intent as of this date 02/05/23. Progress Toward Goals/Plan:: Pt has made significant progress in IOP. Pt?s overall symptom reduction is 63% since admission with irritability sx decreasing by 100%, depression decreasing by 60%, and anxiety decreasing by 40%. Pt reports he has increased self-confidence in his ability to continue making progress with exposure therapy and manage stressors, emotions, and conflict. Pt can continue to benefit from weekly counseling to process occupational stressors, past trauma, and stress associated with parenting, as well as eating disorder specific treatment. Pt will discharge from [facility] tx today and is scheduled to begin the [facility] Aftercare Program on 02/18/23 and continue with outpatient providers. Time Stopped:: 09:52
--- NOTE | 2023-03-18 14:22 | BH.TPR ---
Treatment Plan Review Demographics Date of Admission:: 02/18/23 Date of Treatment Plan Review:: 03/18/23 Admitting Diagnoses:: 1. Major depressive disorder, recurrent, severe without psychosis 2. Generalized anxiety disorder 3. PTSD 4. Avoidant Restrictive Food Intake Disorder Current Diagnoses:: 1. Major depressive disorder, recurrent, severe without psychosis 2. Generalized anxiety disorde 3. PTSD 4. Avoidant Restrictive Food Intake Disorder Patient Status Patient's Response to Treatment:: Pt responding well to treatment AEB pt's consistent attendance, active engagement in group discussions, follow up with outpatient providers, and reporting use of skills outside treatment environment. Pt utilizes IOP aftercare to process current stressors, practice giving himself credit and stepping out of his comfort zone, continue to work on challenging unrealistic expectations of self, and identify more adaptive coping strategies. Status of Current Problems and Symptoms: Ongoing stressors include maintaining progress made in IOP, occupational stress and recent management changes, parenting, managing his eating disorder, and continuing to improve communication within interpersonal relationships. Pt self-reports he has moments of negative thinking, feeling ?overwhelmed?, and depression, but it is still manageable and he is consistently utilizing his skills to best manage his symptoms. Progress Problem #1: Problem Name:: Pt will maintain or decrease symptoms from IOP admission data. Status of Goals:: Pt will maintain or decrease symptoms from IOP admission data. Status of Goals:: Obj 1 - Ongoing work encouraged- Per pt, he has been able to maintain gains made in IOP and reports continued reduction in depression, improved self-care and socialization, as well as improved application of healthy coping skills for managing his anxiety. However, pt was unable to complete a DSM-5 symptom tracker and therefore scores were unable to be obtained. Obj 2 - complete with ongoing work encouraged. Pt has been consistently reporting self-care, thought challenging, and using healthy coping skills. He struggles at times with recognizing and challenging negative core beliefs; however, pt is continuing to make consistent strides in better challenging and replacing these thoughts. Team Recommendations:: Recommended client continue IOP aftercare group to show maintenance of progress. Will continue to encourage client to attend regular outpatient counseling and psychiatry appointments as well.
== END 2023-02-05 12:01 | disposition home or self-care (01) ==
LOC: BHIOP 07:16
PROVIDERS: PCP Registered Nurse; Referring Provider Psychiatry & Neurology Psychiatry; Visit Provider Psychiatry & Neurology Psychiatry
DX: F33.2 Major depressive disorder, recurrent severe without psychotic features (principal); F41.1 Generalized anxiety disorder; F43.10 Post-traumatic stress disorder, unspecified; F50.82 Avoidant/restrictive food intake disorder
CPT/HCPCS: S9480; 90834; 90837; 90853

== ENCOUNTER 2023-02-18 08:00 | Outpatient (RCR) | payer OTHER, SELFPAY ==
--- NOTE | 2023-02-18 14:00 | BH.COMM ---
Communication Note Communication with Client Communication Note: Patient completed IOP and presents today to start relapse prevention group which meets once weekly (1.5 hours) for 8 weeks. Case discussed with Dr. Cloud with plan to admit with dx of F33.2
--- NOTE | 2023-02-18 14:00 | BH.SGPN.GN ---
Behaviors/Verbalizations/Mental Status: []Pt alert and oriented, neatly dressed and groomed. Eye contact good. Motor activity appropriate. Speech within normal limits. Affect congruent, mood euthymic. Thoughts linear, logical, no signs of hallucinations or delusions. Client Response/Progress/Benefit: []Pt receptive of session, engaged throughout. Pt shared he checked in with a support today, but he does not have a new outpatient therapist yet. Pt has been taking his medications consistently and he reports utilizing healthy coping skills outside of aftercare. These skills included: setting and maintaining boundaries, 5-senses, and positive self-talk. Pt reports making a lot of progress with his ED recovery.?Receptive of discussion on sitting with the uncomfortable and emotional urges. Pt contributed to the discussion of distress tolerance and how building distress tolerance can help improve mood stability and resilience. Pt shared he wants to keep building distress tolerance by working on his goals for his ED recovery. Pt seemed to benefit from support from peers and increasing understanding of distress tolerance. Will continue IOP aftercare group to maintain gains and reinforce healthy coping skills.? Narrative Note: []
--- NOTE | 2023-02-18 16:16 | BH.MTP ---
Master Treatment Plan Patient Information Program Physician:: Dr. Georgiana Coleman Primary Therapist:: Lorie BARKER Psychiatric Diagnoses Psychiatric Diagnoses:: Major depressive disorder, recurrent, severe without psychosis F 33.2;Generalized anxiety disorder; PTSD; Avoidant Restrictive Food Intake Disorder Diagnosis Code(s):: F 33.2 Estimated LOS Estimated LOS (in weeks):: 8 Problem/Goal #1 Problem/Goal #1 Stated Goal:: client will maintain or see a reduction in symptoms AEB client score on the DSM 5 cross-cutting measure and improve client's daily functioning. Objectives Objective #1: Stated Objective: Client will continue to consistently apply healthy coping skills to maintain progress made in IOP tx. Interventions: Through group therapy, client will review warning signs and triggers as well as healthy coping skills learned in IOP tx to successfully maintain gains while transitioning into outpatient therapy. Discharge Criteria: Client will have accomplished this goal when client's score on the DSM-5 cross-cutting measure has maintained or reduced over a 8 week period. Target Date: 03/18/23 Review Date: 04/15/23 Status: open Objective #2: Stated Objective: Client will learn and utilize 2-3 maintenance strategies to prevent decompensation from original IOP DSM-5 scores. Interventions: Through group therapy, client will be provided with education on healthy maintenance behaviors, relapse prevention techniques, and healthy coping strategies. Discharge Criteria: Client will have accomplished this goal when can report using at least 2 maintenance skills to prevent decompensation compared to original IOP DSM-5 scores Target Date: 03/18/23 Review Date: 04/15/23 Status: open
--- NOTE | 2023-02-25 14:00 | BH.SGPN.GN ---
Behaviors/Verbalizations/Mental Status: []Client alert and oriented, casual in appearance. Eye contact good. Motor activity appropriate. Speech within normal limits. Affect congruent. Mood frustrated and anxious. Thoughts linear, logical, no signs of hallucinations or delusions Client Response/Progress/Benefit: [] Pt responded well to session AEB providing input throughout and listening attentively to others. Pt reported he is still in the process of scheduling outpatient psychiatry and has not yet reached back out to his outpatient psychologist but plans to do so soon. Reports taking medications as prescribed. Pt identified several coping skills he has been using over the past week to continue to manage mental health sx, which included: reaching out to supports, grounding skills, opposite action, and affirmations. Pt connected with self-reflection discussion. Worked with group to identify the benefits of self-reflection. Appeared to benefit from identifying how to incorporate self-reflection into daily life. Pt completed aftercare specific self-reflection activity and indicated he has seen continued progress in challenging self-criticism and continuing with exposure goals but would like to continue to focus on making improvements in lowering his expectations of self. Pt to continue aftercare to maintain gains and prevent decompensation. Narrative Note: []
--- NOTE | 2023-03-04 14:00 | BH.SGPN.GN ---
Behaviors/Verbalizations/Mental Status: []Pt alert and oriented, neatly dressed and groomed. Eye contact good. Motor activity restless. Speech within normal limits. Affect congruent, mood depressed. Thoughts linear, logical, no signs of hallucinations or delusions. Client Response/Progress/Benefit: []Pt responded well to session, attentive and engaged. Pt states he currently is still searching for a therapist to help with his eating disorder. Stated he had phone interview with [facility], but they want him to do PHP, which he reported will not work for him. Pt states he is taking all his medication. Pt identified using body scan, 5 senses, opposite action, and setting boundaries to help manage stressors throughout week. Completed homework from last session on self-reflection. Pt receptive to discussion and reading of the Chapters of My Life handout. Pt able to connect with the chapters and stated belief he is in chapter 3 which means pt recognizes some of the things he does won't help, but struggles with consistently avoiding the unhealthy coping/strategies. Pt shared to keep moving forward, he wants to set realistic goals, don't give shame power, and give self permission to take recovery slowly. Pt appeared to benefit from connecting with peers and reflecting on her application of coping skills. Pt will continue IOP aftercare to promote gains made in IOP and reinforce healthy coping skills.
== END 2023-03-13 23:59 ==
LOC: BHOG 08:00
PROVIDERS: PCP Registered Nurse; Referring Provider Psychiatry & Neurology Psychiatry; Visit Provider Psychiatry & Neurology Psychiatry
DX: F33.2 Major depressive disorder, recurrent severe without psychotic features (principal)
CPT/HCPCS: 90853

== ENCOUNTER 2023-03-15 09:15 | Outpatient (RCR) | payer OTHER, SELFPAY ==
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
--- NOTE | 2023-03-18 14:00 | BH.SGPN.GN ---
Behaviors/Verbalizations/Mental Status: []Pt alert and oriented, neatly dressed and groomed. Eye contact good. Motor activity appropriate. Speech within normal limits. Affect congruent, mood euthymic and anxious. Thoughts linear, logical, no signs of hallucinations or delusions. Client Response/Progress/Benefit: [] Pt receptive of session, engaged throughout. Pt reports he is consistent with checking in with his supports and taking his medications for the most part. Pt shared there was a lot of ?work drama? this week, so pt had to use a lot of calming skills and assertiveness. Pt is also working on self-compassion. Receptive of discussion on personal accountability and its importance in maintaining mental health stability. Engaged in brainstorming strategies for improving ability to hold themselves accountable. Reported wanting to work keeping track of his wins and asking for feedback. Pt feels he is dialogue driven and this will help her. Pt seemed to benefit from support from peers and increasing understanding of personal accountability benefits and strategies. Will continue IOP aftercare group to maintain gains and prevent decompensation. Narrative Note: []
--- NOTE | 2023-03-25 14:00 | BH.SGPN.GN ---
Behaviors/Verbalizations/Mental Status: []Client alert and oriented, casually dressed and groomed. Eye contact good. Motor activity appropriate. Speech within normal limits. Affect congruent, mood euthymic and anxious. Thoughts linear, logical, no signs of hallucinations or delusions. Client Response/Progress/Benefit: []Receptive of session, engaged throughout. Pt reports he has remained consistent in trying to coordinate outpatient counseling but has not yet been able to schedule. Has been consistent with psychiatry appointments, as well as maintaining medication compliance. Noted use of positive self-talk, opposite action, and doing the anxious thing as coping skills aiding in ongoing mental health maintenance. Engaged and attentive during discussion of vulnerability and benefits of practicing vulnerability. Shared being vulnerable has not been easy for him as he struggles with feeling uncomfortable or out of control. Group discussed ways we avoid feeling vulnerable and how this negatively affects mental health and relationships. Appeared to benefit from group support and discussion reflecting on the positive impact vulnerability can have on mental health. Identified plans to challenge himself to continue to attend a new nancy group as a way in which he could practice being vulnerable in the next week. Pt will continue with aftercare tx to maintain gains and prevent decompensation. Narrative Note: []
--- NOTE | 2023-04-01 09:41 | BH.DS ---
Discharge Summary Demographics Date of Admission:: 02/18/23 Discharge Date: 04/01/23 Presenting Problems at Admission:: Client discharged from IOP tx and transitioned to [facility] aftercare to maintain gains client made in [facility] and to reinforce healthy coping skills. At admission to [facility] aftercare, client reported experiencing mild to moderate symptoms of anxiety and depression. Client was reporting ongoing issues with self-compassion, managing his anxiety related to his ongoing difficulties addressing his eating disorder, navigating interpersonal relationships, and consistently managing daily stressors. Ongoing difficulties in maintaining consistent with anxiety management skills, exposure therapy, as well as challenging distorted thought patterns. Discharge Diagnoses:: 1. Major depressive disorder, recurrent, severe without psychosis 2. Generalized anxiety disorde 3. PTSD 4. Avoidant Restrictive Food Intake Disorder Reason for Discharge:: Pt has completed the aftercare program and has met the maximum benefit of aftercare tx. Pt will continue with outpatient counseling and see his pcp for ongoing medication management and for ongoing maintenance. Treatment Progress During Treatment & Response: Pt did well with attendance and remained active in engagement. Pt contributed well during group discussions, often providing insight and supportive feedback to fellow participants. Pt was able to see a reduction of overall sx from IOP admission to aftercare discharge and shared he is currently ?in the best place I?ve ever been with managing my eating disorder?. Pt reports improved ability to manage daily stressors, communicate with supports about his mental health needs, better balance self-care, challenge distorted thought patterns, and utilize more self-compassionate language. Issues Still to be Addressed:: Distorted thoughts, negative self-talk, avoidance, ruminations, difficulty using exposure therapy to address his avoidant restrictive food intake disorder Discharge Recommendations/Instructions:: Continue working with outpatient counselor Costa Rouse, next scheduled for the beginning of April. Scheduled for medication management to continue with outpatient PCP, Adali Estrada as he continues to work on being connected with an agency specifically focused on treating Avoidant Restrictive Food Intake Disorder. Discharge Handout
== END 2023-04-02 07:51 | disposition home or self-care (01) ==
LOC: BHOG 09:15
PROVIDERS: PCP Registered Nurse; Referring Provider Psychiatry & Neurology Psychiatry; Visit Provider Psychiatry & Neurology Psychiatry
DX: F33.2 Major depressive disorder, recurrent severe without psychotic features (principal); F41.1 Generalized anxiety disorder; F43.10 Post-traumatic stress disorder, unspecified; F50.82 Avoidant/restrictive food intake disorder
CPT/HCPCS: 90853